=== PATIENT | male | born 1970 | race Caucasian/White ===

== ENCOUNTER 2019-02-28 19:09 | Emergency (ER) | payer MEDICAID, SELFPAY ==
[2019-02-28 19:11] VITALS: BP 121/71; PULSE 93; PULSE 97; RESP 18; TEMP 36.3; O2SAT 95; O2SAT 96; BMI 31.7
--- NOTE | 2019-02-28 19:23 | ED.VISSUMM ---
- ER Visit Summary Date of Service: 02/28/19 Chief Complaint: [#] History of Present Illness: The patient is a 49 M [resents with a rash that started 2 to 3 weeks ago. Patient states that he started using Gain detergent before the rash started. Patient states he is always switching soaps as well. He denies any exposures to poison alexa or poison oak. Patient denies any new medications. Denies any fever or recent illness. The rash is pruritic.] Physical Examination: [HEENT-PERRLA, EOMI. Cranial nerves II through XII grossly intact. TMs clear. Mucous membranes moist. No adenopathy. Cardiovascular-regular rate and rhythm without murmur or ectopy Lungs-clear to auscultation, chest wall stable without crepitus or subcu emphysema Abdomen-normoactive bowel sounds, soft, nontender, no rebound or rigidity, no peritoneal signs. Skin exam-patient has a diffuse rash involving the trunk and extremities. Does appear slightly erythematous and inflamed. There are no petechiae or vesicles noted. The lesions are polymorphous measure anywhere from 1 to 2 cm. Extremities-intact ?4, normal range of motion, normal pulses, atraumatic] Test Results: [None indicated] Emergency Department Course and Treatment: [She was started on prednisone 40 mg p.o.] Treatment Plan: [To be treated with prednisone and Atarax. Patient advised to change detergents and switch soap. Patient will be given referral to global account manager if symptoms do not resolve.] Disposition: [Discharged home in stable condition.] Impression: [Dermatitis-etiology uncertain] This note was generated with [employer] dictation software. It may contain incorrect words, spelling, and punctuation that were not noted in review of the chart prior to signing ED Disposition - Plan for ED Patient: Referrals: David Velasco MD [Primary Care Provider] -
--- NOTE | 2019-02-28 19:25 | ED.DEP ---
ED Disposition - Plan for ED Patient: Instructions: ED Dermatitis Non Specific Rash Prescriptions: hydrOXYzine tablet [Atarax tablet] 10 mg PO TID PRN PRN #30 tab PRN Reason: Itching Prednisone [Deltasone] 20 mg PO BID #14 tab Referrals: David Velasco MD [Primary Care Provider] - Parker Johnson MD [STAFF PHYSICIAN] - 1 Week
[2019-02-28] MEDS: predniSONE 20 MG Tablet 40 MG PO (19:33)
[2019-02-28 19:47] VITALS: RESP 18
== END 2019-02-28 19:48 | disposition home or self-care (01) ==
LOC: ED 19:39
PROVIDERS: Emergency Provider Emergency Medicine; Family Provider Internal Medicine; PCP Internal Medicine
DX: L30.9 Dermatitis, unspecified (principal); Z72.0 Tobacco use
CPT/HCPCS: 99283

== ENCOUNTER 2020-05-15 18:57 | Emergency (ER) | payer MEDICAID, SELFPAY ==
[2020-05-15 18:57] VITALS: BP 114/70; PULSE 83; RESP 18; TEMP 36.7; O2SAT 99; BMI 31.0
--- NOTE | 2020-05-15 19:42 | ED.VIS.GEN ---
History of Present Illness Chief Complaint: Back Narrative: Patient presents with neck pain after pushing a heavy piece of machinery in his garage yesterday. Yesterday he only had minimal pain today he woke up with significant pain. There is no radiation to his lower extremities, there is no bowel or bladder compromise there is no urinary retention symptoms, no saddle anesthesia. No fever or chills. Past Medical History - Allergies and Home Meds Allergies/Adverse Reactions: Allergies No Known Allergies Allergy (Verified 05/15/20 18:59) Primary Care Physician: Greg Osborne MD [Primary Care Provider] - Past Medical History: None Smoking Status: Current every day smoker Review of Systems General: Denies: Fever Respiratory: Denies: Dyspnea, Cough Gastrointestinal: Denies: Abdominal pain, Nausea Genitourinary: Denies: Dysuria, Hematuria Musculoskeletal: Reports: Back pain. Denies: Myalgias Skin: Denies: Rash, Abscess Neurological: Denies: Headache, Weakness Hematologic: Denies: Easy bruising Physical Exam Vital Signs/Narrative: Vital Signs Temp Pulse Resp BP Pulse Ox 05/15/20 18:57 98.0 F 83 18 114/70 99 General: - - Patient appears uncomfortable in bed ENT: Moist mucous membranes Cardiovascular: Regular rate, Regular rhythm Respiratory: No distress Abdomen: Soft, Nontender, - - No suprapubic mass or tenderness Back: - - There is tenderness over the lumbar region both spinal and paraspinal region. No obvious deformity seen. Extremities: Nontender, No edema Skin: Normal color Neurological: - - Normal strength and sensation. Normal plantar flexion and dorsiflexion of both feet and great toes. 1+ Achilles and patellar reflexes bilaterally. Negative straight leg test. Diagnostic/Tx/Re-eval - Medical Decision Making Patient has no red flags imaging is not warranted, he appears well and has a normal exam. I will discharge him with analgesia and muscle relaxants. ED Disposition - Plan for ED Patient: Disposition: Home or Assisted Living Instructions: ED LUMBAR SPRAIN/STRAIN Prescriptions: cycloBENZAPRine HCl [Flexeril] 10 mg PO TID PRN #20 tab PRN Reason: Muscle Spasm Prescription Printed Oxycodone HCl/Acetaminophen [Percocet 5/325] 1 tab PO Q6H PRN PRN 3 Days #12 tab PRN Reason: Pain Prescription Printed Referrals: Greg Osborne MD [Primary Care Provider] -
[2020-05-15] MEDS: Orphenadrine 60 MG/2 ML Ampul IM (19:50)
[2020-05-15] MEDS: HYDROmorphone 1 MG/ML Syringe IM (19:51)
[2020-05-15 19:55] VITALS: RESP 18
== END 2020-05-15 20:13 | disposition home or self-care (01) ==
PROVIDERS: Emergency Provider Emergency Medicine; PCP Internal Medicine
DX: M54.5 Low back pain (principal); F17.200 Nicotine dependence, unspecified, uncomplicated
CPT/HCPCS: 96372; 99282

== ENCOUNTER 2021-01-23 17:56 | Emergency (ER) | payer MEDICAID, SELFPAY ==
[2021-01-23 17:57] VITALS: BP 143/90; PULSE 74; RESP 15; TEMP 37.4; O2SAT 98; BMI 30.9
--- NOTE | 2021-01-23 19:17 | EKG12_ITS ---
Test Reason : ANXIETY Blood Pressure : / mmHG Vent. Rate : 070 BPM Atrial Rate : 070 BPM P-R Int : 136 ms QRS Dur : 090 ms QT Int : 392 ms P-R-T Axes : 042 009 021 degrees QTc Int : 423 ms Normal sinus rhythm Normal ECG Confirmed by MAJO QUEEN, DRAGAN ([id number]), editor magazine SAVANNA SIMS ([id number]) on 01/28/2021 12:26:00 PM Referred By: SHAYY Confirmed By:DRAGAN KASPER MD
[2021-01-23] MEDS: hydrOXYzine PAM 25 MG Capsule PO (19:22)
--- NOTE | 2021-01-23 19:35 | RAD_ITS ---
INDICATION: Dyspnea EXAMINATION/TECHNIQUE: X-RAY - XR Chest 1 View COMPARISON: 10/25/2013. FINDINGS: The lungs are clear. The cardiomediastinal silhouette is unremarkable. No pleural effusion or pneumothorax. No acute osseous abnormalities. RAD/Chest 1 View (Portable) IMPRESSION: No acute radiographic abnormalities. Electronically Signed: bEen Chung MD at 19:56 EDT Tel , Service support ,
[2021-01-23 19:40] LABS: Absolute Lymphocyte Count 3.04 X10^3/uL (0.83-4.51); Absolute Neutrophil Count 9.2 X10^3/uL (2.0-7.7); Basophil# 0.08 X10^3/uL; Basophil% 0.6 % (0-1); Eosinophil# 0.41 X10^3/uL; Eosinophils% 2.9 % (0-5); Hematocrit 42.3 % (40-54); Hemoglobin 14.1 g/dL (13.0-16.5); Lymphocyte # 3.04 X10^3/ul (0.83-4.51); Lymphocyte % 21.9 % (19-41); Mean Corp Hgb Conc 33.3 g/dL (32-36); Mean Corpuscular Hgb 30.1 pg (27.0-32.0); Mean Corpuscular Volume 90.4 fL (80-94); Mean Platelet Vol. 8.8 fl (6.2-12.0); Monocyte# 1.18 X10^3/uL; Monocyte% 8.5 % (0-10); NRBC Flagged by Analyzer 0 % (0-5); Neutrophil # 9.15 X10^3/uL (2.7-7.7); Neutrophil % 65.7 % (47-70); Platelet Count 295 K/mm3 (150-450); RBC Distribution Width CV 13.5 % (11.6-14.6); Red Blood Count 4.68 M/mm3 (4.6-6.2); White Blood Count 13.9 K/mm3 (4.4-11.0)
[2021-01-23 20:03] LABS: AST(SGOT) 8 U/L (15-37); Alanine Aminotransfer ALT/SGPT 28 U/L (16-61); Albumin, Serum 3.3 g/dL (3.2-5.0); Alkaline Phosphatase 50 U/L (45-117); Anion Gap 4 (5-15); BUN 11 mg/dL (7-18); BUN/Creat Ratio 12.8 RATIO (10-20); Calcium,Total 8.3 mg/dL (8.5-10.1); Chloride 108 mmol/L (98-107); Creatinine, Serum 0.86 mg/dL (0.70-1.30); EST Glomerular Filtration Rate 100 mL/min (>60); Est Glom Filt Rate - Afr Amer 121 mL/min (>60); Estimated Creatinine Clearance 105.05 ml/min; Globulin 3.2 g/dL (2.2-4.2); Glucose 108 mg/dL (74-106); Potassium 3.6 mmol/L (3.5-5.1); Protein, Total 6.5 g/dL (6.4-8.2); Sodium Level 139 mmol/L (136-145)
[2021-01-23] MEDS: LORazepam 1 MG Tablet PO (20:39)
--- NOTE | 2021-01-23 20:52 | EX.ED.DYSGE1 ---
HPI History of Present Illness Chief Complaint: Anxiety Informant: patient Onset/Context/Timing Onset: Days (2) Context: Gradual Onset Timing: Continuous Quality: Hopeless and anxious Location: Generalized Worsened by: Nothing Relieved by: Sleeping Narrative Narrative: Patient presents with anxiety that is been getting worse over the past 2 days. Patient states he feels hopeless. Patient also feels anxious. Patient denies any suicidal or homicidal ideations. Patient states he has a sharp pain in his left hand from prior surgery. Patient also admits to some numbness and tingling in his right hand. Patient states he is scheduled for surgery for that. Patient states this has been making him more anxious. Patient also admits to some intermittent blurred vision but denies any diplopia. Patient admits to some chest pain but denies any palpitations. Patient admits to some nausea and vomiting. [facility] Medical History GERD (gastroesophageal reflux disease) Home Medications Tamsulosin Hcl 0.4 mg PO DAILY 02/28/19 [History Last Taken Unknown] prednisone 20 mg PO BID #14 tab 02/28/19 [Rx Last Taken Unknown] cyclobenzaprine 10 mg PO TID PRN #20 tab 05/15/20 [Rx Last Taken Unknown] hydroxyzine pamoate [Vistaril] 25 mg PO TID PRN #20 cap 01/23/21 [Rx Last Taken Unknown] Allergy/AdvReac Type Severity Reaction Status Date / Time No Known Allergies Allergy Verified 01/23/21 17:56 Surgical History (Updated 01/23/21 @ 23:[address] Mk Carbone DO) History of hand surgery Social History Smoking Status: Current every day smoker ROS ROS ED Constitutional Constitutional ED: Denies chills or fever(s) Eyes Eyes: Reports blurry vision; Denies diplopia ENT ENT ED: Denies rhinorrhea or sore throat Cardiovascular Cardiovascular: Reports chest pain; Denies palpitations Respiratory/Chest Respiratory/Chest: Denies cough or dyspnea Gastrointestinal Gastrointestinal: Reports nausea and vomiting Genitourinary Genitourinary ED: Denies dysuria or hematuria Musculoskeletal Musculoskeletal: Reports back pain; Denies neck pain Integumentary Denies abscess or rash Neurologic Neurologic: Reports paresthesias RUE Psychiatric Psychiatric: Reports anxiety; Denies suicidal ideation or suicidal thoughts Allergic/Immunologic Allergic/Immunologic ED: Denies mouth swelling or urticaria EXAM Physical Exam Const Vital Signs: 01/23/21 17:57 Temperature 99.3 F H Temperature Source Temporal Pulse Rate 74 Respiratory Rate 15 Blood Pressure 143/90 H Blood Pressure Mean 107 Pulse Ox 98 Oxygen Delivery Method Room Air Positive well nourished, well developed and obese General Appearance ED: well developed Nutritional Appearance: obese HEENT normocephalic and atraumatic Eyes PERRL and EOMs intact bilaterally Neck supple and no JVD Chest Wall palpation of chest normal Resp normal respiratory effort and clear to auscultation bilaterally Effort and Inspection: Negative for respiratory distress Cardio regular rate, regular rhythm and no murmurs GI normal to inspection, nondistended, normoactive bowel sounds, soft to palpation, non-tender and non-distended Palpation: soft Extremity normal to inspection General Extremety ED: Negative for edema General Extremity: Negative for edema Neuro oriented x3 and CN's II-XII intact bilaterally Sensorium / Orientation: awake and alert Psych mental status grossly normal MDM MDM MDM Narrative Medical decision making narrative: EKG was obtained. On my interpretation, it showed a normal sinus rhythm with a rate of 70. OH interval, QRS interval, and QTc intervals were all normal. [place] was normal. There are no acute ST or T wave changes. CBC shows a mild leukocytosis of 13.9. Comprehensive metabolic profile was essentially within normal limits. Troponin was normal. Portable 1 view chest x-ray was obtained. On my interpretation, lung young are clear. There is normal cardiac silhouette. Bony thorax is normal. There is no acute process noted. Radiologist also interpreted the x-ray and agrees. Patient was given a dose of hydroxyzine here. Patient had minimal relief with this. Patient was given a dose of Ativan. Patient was resting comfortably on reevaluation. Patient was given a prescription for Vistaril. Patient was instructed to follow-up with his primary care physician in 3 to 5 days. Patient understood and was agreeable with the plan. All questions were answered. Lab Data Attestation: I reviewed the patient's lab results. Labs: Laboratory Results - last 24 hr 01/23/21 01/23/21 19:30 19:30 WBC 13.9 H RBC 4.68 Hgb 14.1 Hct 42.3 MCV 90.4 MCH 30.1 MCHC 33.3 RDW Std Deviation 45.0 H RDW Coeff of Will 13.5 Plt Count 295 MPV 8.8 Immature Gran % (Auto) 0.400 Neut % (Auto) 65.7 Lymph % (Auto) 21.9 [place]k % (Auto) 8.5 Eos % (Auto) 2.9 Baso % (Auto) 0.6 Absolute Neuts (auto) 9.2 H Absolute Lymphs (auto) 3.04 Nucleated RBC % 0 Sodium 139 Potassium 3.6 Chloride 108 H Carbon Dioxide 27.0 Anion Gap 4 L BUN 11 Creatinine 0.86 Estim Creat Clear Calc 105.05 Est GFR (MDRD) Af Amer 121 Est GFR (MDRD) Non-Af 100 BUN/Creatinine Ratio 12.8 Glucose 108 H Calcium 8.3 L Total Bilirubin 0.20 AST 8 L ALT 28 Alkaline Phosphatase 50 Troponin I < 0.015 Total Protein 6.5 Albumin 3.3 Globulin 3.2 Albumin/Globulin Ratio 1.0 Radiography Chest X-Ray - ED: 1 View, Read by ED Physician, Read by Radiologist and Normal Diagnostic Testing: Radiology Impression Chest X-Ray 01/23/21 19:35 IMPRESSION: No acute radiographic abnormalities. Electronically Signed: Eben Chung MD at 19:56 EDT Tel , Service support , EKG Initial EKG: Attestation: I personally reviewed and interpreted this EKG as follows: Interpretation: Sinus Rhythm (70) and No Acute Injury Pattern Discharge Plan Triage Chief Complaint: Anxiety ED Provider: Mk Carbone Dx/Rx/DC Orders Clinical Impression: Acute anxiety Instructions: ED Anxiety Reaction Prescriptions: New hydroxyzine pamoate [Vistaril] 25 mg capsule 25 mg PO TID PRN (Reason: anxiety) Qty: 20 RF: 0 Discontinued hydroxyzine HCl 10 MG tablet 10 mg PO TID PRN PRN (Reason: Itching) Qty: 30 RF: 0 No Action Tamsulosin Hcl 0.4 MG capsule 0.4 mg PO DAILY RF: 0 prednisone 20 MG tablet 20 mg PO BID Qty: 14 RF: 0 cyclobenzaprine 10 MG tablet 10 mg PO TID PRN (Reason: Muscle Spasm) Qty: 20 RF: 0 Primary Care Provider: Greg Osborne Referrals: Greg Osborne MD [Primary Care Provider] - 3-5 Days Disposition Disposition: Home, self care Discharge Date/Time: 01/23/21 21:09
== END 2021-01-23 21:09 | disposition home or self-care (01) ==
PROVIDERS: Emergency Provider Emergency Medicine; PCP Internal Medicine
DX: F41.9 Anxiety disorder, unspecified (principal); K21.9 Gastro-esophageal reflux disease without esophagitis; F17.200 Nicotine dependence, unspecified, uncomplicated; E66.9 Obesity, unspecified
CPT/HCPCS: 71045; 80053; 84484; 85025; 93005; 99284; A4216

== ENCOUNTER 2021-03-26 09:00 | Outpatient (RCR) | payer MEDICAID, SELFPAY ==
--- NOTE | 2021-03-26 09:05 | BH.SGPN.GN ---
Behaviors/Verbalizations/Mental Status: [] Pt eye contact good, casually dressed, motor activity appropriate, speech normal rate and tone, mood euthymic, congruent affect, thoughts linear and intact, no evidence of delusions or hallucinations. Client Response/Progress/Benefit: []Pt engaged participant AEB pt listening attentively to peers and openly sharing what brought him to IOP. Pt stated he is seeking treatment for significant anxiety, PTSD and confusion. Pt reported he would like to learn how to better manage his anxiety and mental health. Pt's first day in IOP. Seemed to benefit from support from peers. Pt to continue IOP to increase healthy coping, improve daily functioning and prevent decompensation. Narrative Note: []
--- NOTE | 2021-03-26 10:15 | BH.SGPN.GN ---
Behaviors/Verbalizations/Mental Status: [] Eye contact is good. Motor activity is appropriate. Appearance is casual. Speech is Appropriate. Mood is anxious. Affect is congruent. Thoughts are linear and logical. No evidence of psychosis. Client Response/Progress/Benefit: [] Pt was an active participant in group discussion and activity. Attentive during psychoeducation. Engaged and provided feedback during activity where group had to identify 10 positives and 10 negatives of a picture. Provided her thoughts on how one's perspective is formed and with the group identified several ways such as; upbringing, trauma, environment, friends, past events, fear, medical issues, physical pain, and mental health disorders. Along with her peers identified how one's perspective can negatively impact mental health treatment leading to; risky behaviors, suicidal thoughts, self-harming, isolation, avoiding treatment, shutting down, and can also cause one to stop taking medications. Provided input into how a positive or realistic perspective can help decrease depression, improve relationship, increase hope, and increase motivation. Increased awareness and discussion on the role that perspective has on mental health was beneficial. Will continue in IOP to prevent decompensation, improve functioning, and increase healthy coping skills. Narrative Note: []
--- NOTE | 2021-03-26 11:15 | BH.SGPN.GN ---
Behaviors/Verbalizations/Mental Status: []Client alert and oriented, neatly dressed and groomed. Eye contact good. Motor activity appropriate. Speech within normal limits. Affect congruent, mood euthymic. Thoughts linear, logical, no signs of hallucinations or delusions. Client Response/Progress/Benefit: []Pt engaged participant AEB pt providing input throughout session, listening attentively to peers and completing strengths exploration handout. Pt identified personal strengths such as persistence, forgiveness, and optimism. Pt stated these strengths will help pt?s mental health recovery by ?I won?t give up,? taking responsibility for his own actions, and having hope for the future. Pt seemed to benefit from increased awareness of personal strengths and improved understanding how perspective can impact view of self. Pt also attentive during group brainstorming on strategies to help pt?s recognize and use their strengths. Pt is to continue IOP tx improve daily functioning, increase emotional regulation skills, and gain healthy support. Narrative Note: []
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
--- NOTE | 2021-03-27 13:37 | BH.DR.ITP ---
Initial Treatment Plan Patient Information Visit Information: ADMISSION DATE: EXPECTED LOS: 4-6 weeks Problems/Symptoms Problem #1:: Depression and erratic moods Symptom:: Sadness, worthlessness, guilt, irritability, low motivation, anhedonia, erratic sleep, low energy, decreased concentration, passive suicidal ideation, passive thoughts of Problem #2:: Anxiety Symptom:: Worry, rumination, panic attacks, nightmares, hypervigilance
--- NOTE | 2021-04-01 10:15 | BH.SGPN.GN ---
Behaviors/Verbalizations/Mental Status: []Eye contact is good. Motor activity is restless. Appearance is casual. Speech is Appropriate. Mood is agitated and anxious. Affect is full. Thoughts are linear and logical. No evidence of psychosis. Client Response/Progress/Benefit: []Pt was an active participant in group discussion and activity. Attentive during psychoeducation on factors that build resiliency. Worked with peers to define resilience and shared ?stubbornness can be resiliency, but it can sometimes be a bad thing.? Along with peers also identified what could impact resilience which included: family, internal coping skills, beliefs, hope, and personality type. Pt reports his desire to succeed and willingness to return to treatment make pt resilient. Pt benefited by increasing awareness on the role of resilience in mental health and factors that can help build resiliency. Will continue in IOP to prevent decompensation, learn healthy coping skills, and reduce intensity of anxiety symptoms. Narrative Note: []
--- NOTE | 2021-04-01 10:31 | BH.MDN_ITS ---
Multi-Disciplinary Note - Note 30-min Individual Time Started:: 09:45 Date: 04/01/21 Purpose of session/treatment goals addressed:: The purpose of this session was to gather information on client's current stressors, symptoms, and treatment goals. Another goal was to build rapport and provide psychoeducation. Eye Contact:: Good Motor Activity:: Restless Appearance:: Casual Speech:: Rambling, Rapid Mood:: Anxious Affect:: Congruent Thoughts:: Racing, No evidence of hallucinations/delusions noted Staff Interventions:: Therapist used active listening and open-ended questions to explore client's current stressors, symptoms, and treatment goals. Therapist used strengths perspective to build rapport and provide emotional support. Therapist provided psychoeducation on medication, anxiety and bipolar disorder, and the benefits of sobriety. Client Response:: Client responded well to session, open to meeting with therapist. Client shared he had to step out from process group today due significant anxiety. Client stated he felt sweaty, had shortness of breath, and was restless. Client reports he is not sure what triggered his increased anxiety but suspects it could be caffeine this morning. Client is also worried about the medication change to Abilify. Discussed medication concerns and receptive to psychoeducation. Also discussed recent binging and purgring and client reports concern about his increased appetite. Discussed history of bulimia and substance use. Client reports his eating disorder and anxiety stem back to childhood. Client shared he wants to work on reducing anxiety, gaining self-confidence, and gaining self-awareness while in [facility]. Client was recently diagnosed with bipolar disorder NOS and he reports he does not know that much about the diagnosis. Client receptive to learning more about his symptoms and habits/coping skills that may be impacting his symptoms. Client stated he also wants to remain sober and find better ways to cope rather than continuing to escape. Risks/Concerns:: Client denies any active suicidal ideations, plan, or intent as of 04/01/21. Client reports feeling worried about if his anxiety does not go away he will because I can't live like this. Future oriented and motivated. Progress Toward Goals/Plan:: Client started IOP on 03/26/21 and appears to be connecting well to group so far. Client presents to [facility] with severe anxiety, panic attacks, and inability to function due to his symptoms. Client endorses increased appetite, agitation, restlessness, rapid speech, and racing thoughts. Client recently switched medications and he is concerned that the medication switch is making his symptoms worse. IOP staff will talk to Dr. Sesay. Will continue IOP tx to prevent decompensation, improve emotional regulation skills, and reduce negative thinking patterns. Time Stopped:: 10:10
--- NOTE | 2021-04-01 11:20 | BH.SGPN.GN ---
Behaviors/Verbalizations/Mental Status: []Client alert and oriented, casually dressed and neatly groomed. Eye contact good. Motor activity appropriate. Speech within normal limits. Affect congruent, mood euthymic and anxious. Thoughts linear, logical, no signs of hallucinations or delusions. Client Response/Progress/Benefit: []Client responded well to session, engaged and providing input throughout. Client participated in the discussion of how each resiliency component can help increase personal resiliency. Reports relating to the personal examples shared by fellow participants and provided insight of his own. Client worked with group to identify ways to practice each of the resiliency traits reviewed. Client shared he would like to focus on improving resilience trait of ?take care of self?. Client would like to continue working on this resiliency trait by scheduling time each Thursday to complete meal prep for the week as well as establish a weekly exercise plan. Appeared to benefit from reflecting on importance of each resilience trait and identifying strategies to strengthen resilience. Will continue IOP tx to continue to improve mood stability, further reduce anxiety, and improve daily functioning. Narrative Note: []
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
--- NOTE | 2021-04-01 14:25 | BH.MTP ---
Master Treatment Plan - Patient Information Program Physician:: Dr. Kristen Sesay Primary Therapist:: FELA Truong - Psychiatric Diagnoses Psychiatric Diagnoses:: Bipolar, NOS; Generalized anxiety disorder; PTSD; Bulimia nervosa; Alcohol use disorder; Polysubstance use disorder history; Cluster B traits Diagnosis Code(s):: F 31.9 - Estimated LOS Estimated LOS (in weeks):: 6 Problem/Goal #1 - Problem/Goal #1 Stated Goal:: Client will increase mood stability, reduce depressive symptoms, and reduce passive thoughts of . Description of Barriers: Client has history of body image issues and bulimia and fears being overweight. Client states that he is anxious and depressed over sexual identity issues and says that he has hated himself always because he thinks he is shine and that it is not right to be shine. Client is currently not working and is on probation. History of non-responsiveness to medications and medication non-compliance. Client also struggles with large groups as this makes client feel highly anxious. Current caffeine use may be problematic in treating client's bipolar symptoms. History of impulsive behaviors and limited supports. Functional Impact: Client is a 51-year-old male with a history of Bipolar NOS, PTSD, polysubstance use, and bulimia. Client was referred to [facility] by his roommate due to worsening anxiety and panic. At intake, client reported daily anxiety with racing thoughts, restlessness, feeling on edge, and panic attacks. Client shared being unable to function and found himself avoiding and isolating. Client reports increased irritability with anger outbursts. Client denies any HI, but he does have a history of violent behaviors. Client currently on probation and reports he has PTSD from detention. Client shared he has nightmares and hypervigilance. Client also has a history of substance abuse, but reports he has been sober for 6 months. Client reports he self-medicates with substances to escape. Client denies any active SI, but does endorses wishes of and has history of one previous suicide attempt. Client shared a history of impulsivity and some evidence of will. Client's symptoms are currently impacting his ability to function. Goal Relevant Strengths/Supports: For primary support client has his roommate and his first aid officer. - Objectives Objective #1 Stated Objective: Client will learn and utilize 2-3 healthy coping strategies to better manage depressive and mood symptoms as shown by reduced DSM-5 scores. Interventions: Therapist will teach client various coping skills to manage symptoms and give client tangible resources to use to regulate emotions. Therapist will use cognitive restructuring techniques and help client gain awareness of negative thoughts that reinforce depressive cycles. Therapist will help client incorporate behavioral activation and assist client in setting SMART goals. Discharge Criteria: Client will have met this goal when can report learning and using at least 2 coping skills to manage depressive symptoms and show a reduction in DSM-5 symptoms. Target Date: 05/07/21 Review Date: 04/23/21 Status: open Objective #2 Stated Objective: Will increase awareness of warning signs, triggers, and coping skills to manage bipolar symptoms. Interventions: Through group and individual therapy client will gain insight on warning signs and triggers for will, depression, and irritability. Therapist will help client explore how his diet, exercise, and sleep schedule impact bipolar symptoms and help client set self-care goals to promote mood stability. Discharge Criteria: When client can identify at least 2-3 personal warning signs, triggers, and coping skills to manage his bipolar disorder. Target Date: 05/07/21 Review Date: 04/23/21 Status: open Problem/Goal #2 - Problem/Goal #2 Stated Goal:: Client will reduce anxiety and panic symptoms while increasing ability to function on daily basis. Description of Barriers: Client has history of body image issues and bulimia and fears being overweight. Client states that he is anxious and depressed over sexual identity issues and says that he has hated himself always because he thinks he is shine and that it is not right to be shine. Client is currently not working and is on probation. History of non-responsiveness to medications and medication non-compliance. Client also struggles with large groups as this makes client feel highly anxious. Current caffeine use may be problematic in treating client's bipolar symptoms. History of impulsive behaviors and limited supports. Functional Impact: Client is a 51-year-old male with a history of Bipolar NOS, PTSD, polysubstance use, and bulimia. Client was referred to [facility] by his roommate due to worsening anxiety and panic. At intake, client reported daily anxiety with racing thoughts, restlessness, feeling on edge, and panic attacks. Client shared being unable to function and found himself avoiding and isolating. Client reports increased irritability with anger outbursts. Client denies any HI, but he does have a history of violent behaviors. Client currently on probation and reports he has PTSD from detention. Client shared he has nightmares and hypervigilance. Client also has a history of substance abuse, but reports he has been sober for 6 months. Client reports he self-medicates with substances to escape. Client denies any active SI, but does endorses wishes of and has history of one previous suicide attempt. Client shared a history of impulsivity and some evidence of will. Client's symptoms are currently impacting his ability to function. Goal Relevant Strengths/Supports: For primary support client has his roommate and his first aid officer. - Objectives Objective #1 Stated Objective: Client will identify 2-3 anxiety/panic triggers and 2 coping skills to use when feeling anxious to manage anxiety as shown by decreasing her DSM-5 scores for anxiety. Interventions: Therapist will provide education on anxiety, avoidance behaviors, and maintenance cycles. Therapist will help client explore personal symptoms and warning signs of anxiety. Therapist will teach client coping skills to improve emotional regulation, mindfulness, and distress tolerance to help client cope with anxiety in the moment. Discharge Criteria: Client will have accomplished this goal when client can identify at least 2 triggers and report using 2 coping skills to manage anxiety. Additionally, client will have accomplished this goal when DSM-5 scores show a reduction for anxiety. Target Date: 05/07/21 Review Date: 04/23/21 Status: open Objective #2 Stated Objective: Client will identify 2-3 cognitive distortions that lead to rumination and learn 2-3 ways to manage these thoughts to better manage anxiety Interventions: Therapist will provide education on the most common cognitive distortions and teach client the connection between thoughts, emotions, and feelings. Therapist will assist client in identifying, challenging, and replacing dysfunctional thoughts with positive, more realistic thoughts. Therapist will use CBT and DBT techniques to help client gain awareness of thinking errors and learn how to more effectively handle negative thoughts Discharge Criteria: Client will have accomplished this goal when can identify at least 2 cognitive distortions and at least 2 coping skills to manage negative thoughts. Target Date: 05/07/21 Review Date: 04/23/21 Status: open
--- NOTE | 2021-04-03 08:44 | BH.COMM_ITS ---
Communication Note - Communication with Client Communication Note: Client called into IOP stating he would not be able to come in today. Client was scheduled to see Dr. Lim today. Client states he has stopped taking his new medication ordered for him last week, Abilify, due to increased anxiety with taking. Discussed client with Dr. Lim and Dr. Lim orders for client to stop Abilify and start taking the Effexor 37.5mg daily he had been taking prior to Abilify. This nurse called client and discussed same a nd client states he had already started taking his Effexor 37.5mg daily again. Discussed with client he would be able to see Dr. Lim next Thursday.
--- NOTE | 2021-04-04 10:11 | BH.COMM ---
Communication Note - Communication with Client Communication Note: Client cancelled two of his IOP sessions this week. Reports plan to attend IOP on 04/09/21.
--- NOTE | 2021-04-11 09:01 | BH.DS_ITS ---
Discharge Summary - Demographics Date of Admission:: 03/26/21 Discharge Date: 04/11/21 Presenting Problems at Admission:: Client is a 51-year-old male with a history of Bipolar NOS, PTSD, polysubstance use, and bulimia. Client was referred to [facility] by his roommate due to worsening anxiety and panic. At intake, client reported daily anxiety with racing thoughts, restlessness, feeling on edge, and panic attacks. Client shared being unable to function and found himself avoiding and isolating. Client reports increased irritability with anger outbursts. Client denies any HI, but he does have a history of violent behaviors. Client currently on probation and reports he has PTSD from halfway. Client shared he has nightmares and hypervigilance. Client also has a history of substance abuse, but reports he has been sober for 6 months. Client reports he self-medicates with substances to escape. Client denied any active SI, but does endorses wishes of and has history of one previous suicide attempt. Client shared a history of impulsivity and some evidence of will. Client sought treatment as his symptoms were impacting his ability to function. Discharge Diagnoses:: Bipolar, NOS F 31.9; Generalized anxiety disorder; PTSD; Bulimia nervosa; Alcohol use disorder; Polysubstance use disorder history; Cluster B traits Reason for Discharge:: Client voluntarily discharged from [facility] tx due to difficulty adhering to the attendance policy and plan to seek more AoD specific counseling. - Treatment Progress During Treatment & Response: Limited progress due to client's lack of attendance which impacted client's ability to participate in group and individual sessions. Client cancelled multiple times during his time in [facility], but on days he did attend client was an active participant. Client was engaged in individual therapy sessions, but he only met with therapist once. Due to limited attendance, client did not complete the program or accomplish his treatment goals. Issues Still to be Addressed:: Negative core beliefs and thinking patterns, substance use, anxiety and panic, self-care, emotional regulation, and impulse control. Discharge Recommendations/Instructions:: Client reports plan to follow up with [facility] for outpatient counseling. Client previously saw a counselor at [facility] and feels it will be a good fit to help client with his mental health and substance use history. Client will follow up with his PCP for medication management. Discharge Handout: Complete Discharge Handout with client on aftercare options and continuity of care.
== END 2021-04-11 07:42 | disposition home or self-care (01) ==
LOC: BHIOP 09:00
PROVIDERS: PCP Internal Medicine; Referring Provider Psychiatry & Neurology Psychiatry; Visit Provider Psychiatry & Neurology Psychiatry
DX: F31.9 Bipolar disorder, unspecified (principal); F43.10 Post-traumatic stress disorder, unspecified; F50.2 Bulimia nervosa; Z72.0 Tobacco use; Z79.899 Other long term (current) drug therapy; Z91.5 Personal history of self-harm; N40.0 Benign prostatic hyperplasia without lower urinary tract symptoms; Z81.8 Family history of other mental and behavioral disorders
CPT/HCPCS: 90792; H2012; H2020; S9480; 90832

== ENCOUNTER 2021-11-22 11:37 | Emergency (ER) | payer MEDICAID, SELFPAY ==
[2021-11-22 11:37] VITALS: PULSE 70; RESP 12; TEMP 37.1; O2SAT 95; BMI 32.3
[2021-11-22 12:00] VITALS: O2SAT 98
--- NOTE | 2021-11-22 12:04 | CT_ITS ---
STUDY: CT CHEST, ABDOMEN T PELVIS WITH CONTRAST REASON FOR EXAM: Male, 51 years old. right rib pain, fall -- TRAUMA ONLY: IV Contrast. Dont wait for creatinine RADIATION DOSAGE (If Supplied By Facility): CTDIvol = ( 16.49 ) mGy, DLP = ( 2224.36 ) mGycm TECHNIQUE: Transaxial imaging was performed following intravenous administration of IV 100mL Isovue-370. Individualized dose optimization techniques were used for this CT. COMPARISON: No relevant priors. FINDINGS: CHEST The lungs are normal. There is no demonstrated pleural abnormality. Normal heart and pericardium. Small hiatal hernia. Normal mediastinum. Normal hilar regions. Normal unenhanced pulmonary arteries. Normal aorta arch and descending thoracic aorta. Normal osseous structures. There is no demonstrated abnormality of the visualized upper abdomen. ABDOMEN The visualized lung bases are unremarkable. The visualized portions of the heart are within normal limits. Normal liver. The gallbladder is contracted. Normal spleen. Normal pancreas. Normal bilateral adrenal glands. Normal right kidney. Normal left kidney. There is a small hiatal hernia. Normal small intestine. There is diverticulosis, with thickening of the colon wall, and pericolonic inflammation changes consistent with acute diverticulitis. The appendix is visualized and appears normal. Normal abdominal aorta. Normal inferior vena cava. Normal retroperitoneum. Normal abdominal wall. Normal osseous structures. PELVIS Normal urinary bladder. Normal visualized small intestine. Normal visualized colon. There is no pelvic fluid. There is no pelvic lymphadenopathy or mass lesion. Normal visualized pelvic arteries. Normal abdominal wall. Normal osseous structures. CT/CT Chest, Abd, Pel w/Contrast IMPRESSION: 1. No acute abnormality. 2. Small hiatal hernia. 3. Sigmoid diverticulosis without diverticulitis per Electronically Signed: Ward Huerta MD at 14:23 EST ,
--- NOTE | 2021-11-22 12:05 | RAD_ITS ---
STUDY: X-RAY - LEFT KNEE REASON FOR EXAM: Male, 51 years old. fall, knee pain TECHNIQUE: 4 view(s) of the knee. COMPARISON: 05/09/2015 FINDINGS: Normal visualized distal femur. Normal visualized proximal tibia and fibula. Normal proximal tibiofibular articulation. Normal medial femorotibial compartment. Normal lateral femorotibial compartment. Normal patellofemoral articulation. The soft tissue structures are unremarkable. RAD/Knee 4 or More Views IMPRESSION: Normal x-ray examination of the knee. Electronically Signed: Ward Huerta MD at 13:28 EST ,
--- NOTE | 2021-11-22 12:05 | RAD_ITS ---
STUDY: X-RAY - LEFT WRIST REASON FOR EXAM: Male, 51 years old. fall, wrist pain TECHNIQUE: 3 view(s) of the wrist were obtained. COMPARISON: None. FINDINGS: Normal visualized distal radius and ulna. Normal radiocarpal articulation. Normal distal radioulnar articulation. Absence of the trapezium. Normal carpal articulations. Normal carpometacarpal articulation of the thumb. Normal second through fifth carpometacarpal articulations. Normal visualized metacarpal bones. The soft tissue structures are unremarkable. RAD/Wrist min 3 Views IMPRESSION: No acute fracture or dislocation. Electronically Signed: Ward Huerta MD at 13:28 EST ,
--- NOTE | 2021-11-22 12:05 | RAD_ITS ---
STUDY: X-RAY - LEFT RADIUS AND ULNA REASON FOR EXAM: Male, 51 years old. fall TECHNIQUE: 2 view(s) of the forearm. COMPARISON: None. FINDINGS: There is no demonstrated soft tissue swelling. Acute fracture of the radial neck. Normal visualized ulna. RAD/Forearm 2 Views IMPRESSION: Acute radial neck fracture. Electronically Signed: Ward Huerta MD at 13:29 EST ,
--- NOTE | 2021-11-22 12:05 | RAD_ITS ---
STUDY: X-RAY - LEFT HAND REASON FOR EXAM: Male, 51 years old. thumb pain TECHNIQUE: 3 view(s) of the hand. COMPARISON: None. FINDINGS: Normal radiocarpal articulation. Normal distal radioulnar joint. Normal visualized carpal bones. Normal carpal articulations Normal carpometacarpal articulation of the thumb. Normal second through fifth carpometacarpal joints. Normal metacarpi. Normal metacarpophalangeal joint of the thumb. Normal interphalangeal joint of the thumb. Acute comminuted impacted fracture of the base of the first proximal phalanx. Normal metacarpophalangeal joints of the second through fifth fingers. Normal proximal and distal interphalangeal joints of the second through fifth fingers. Normal phalanges of the second through fifth fingers. The soft tissue structures are unremarkable. RAD/Hand Min 3 Views IMPRESSION: Acute comminuted impacted fracture base of the first proximal phalanx. Electronically Signed: Ward Huerta MD at 13:27 EST ,
--- NOTE | 2021-11-22 12:07 | ED.VIS.FALL ---
HPI <MANUEL Antonio - Last Filed: 11/22/21 15:43> HPI - Fall History of Present Illness Chief Complaint: Fall Narrative Narrative: 51-year-old male with history of alcohol use, BPH, GERD, hyperlipidemia, bipolar presents to the emergency department after falling off a ladder. Patient states that he was up around 7 feet, falling forward landing on his left knee, left hand and wrist and hitting his right ribs. Patient denies any head or neck injury. Patient was able to get up after the fall and tell his father who brought him into the emergency department. Patient remembers the entire event, patient is currently not any blood thinners, denies any LOC. Patient states that the worst pain is his left hand worse on his thumb. Patient does have an abrasion to his left knee, patient denies any drugs or alcohol use today. PFSH <MANUEL Antonio - Last Filed: 11/22/21 15:43> [facility] Medical History (Updated 11/22/21 @ 15:38 by MANUEL Antonio) Alcohol use disorder Bipolar disorder, unspecified Bulimia nervosa Generalized anxiety disorder GERD (gastroesophageal reflux disease) PTSD (post-traumatic stress disorder) Home Medications Tamsulosin Hcl 0.4 mg PO DAILY 02/28/19 [History Last Taken Unknown] omeprazole 20 mg PO DAILY 11/22/21 [History Last Taken Unknown] oxycodone-acetaminophen [Percocet] 1 tab PO Q6H PRN 3 Days #10 tab 11/22/21 [Rx Last Taken Unknown] Allergy/AdvReac Type Severity Reaction Status Date / Time No Known Allergies Allergy Verified 11/22/21 11:48 Surgical History History of hand surgery Social History Smoking Status: Current every day smoker tobacco type: cigarettes ROS <MANUEL Antonio - Last Filed: 11/22/21 15:43> ROS ED ROS Narrative Constitutional: Negative for fever, chills, weight loss or gain, weakness Eyes: Negative for vision loss, vision change, double vision ENT: Negative for any hearing changes, ringing in the ears, dizziness, discharge, pain Nose: Negative for any congestion, runny nose, sinus pain, allergies Throat: Negative for any sore throat hoarseness, voice changes, Cardiovascular: Negative for any chest pain, tightness, palpitations, racing heartbeat. Positive for right-sided chest pain Respiratory: Negative for any coughs, sputum production, coughing, hemoptysis, shortness of breath, shortness of breath on exertion, Gastrointestinal: Negative for any abdominal pain, nausea, vomiting, diarrhea, constipation, blood in stool, blood in vomit : Negative for any urinary frequency, incontinence, dysuria, retention, blood in urine Muscle skeletal: Negative for any muscle joint pain, stiffness, myalgias, arthralgias, neck pain, back pain. Positive for left-sided hand pain, forearm, denies any elbow pain. Neurological: Negative for any headache, head injury, dizziness, syncope, numbness or tingling Skin: Negative for any rashes, lumps, itching, abrasions, lacerations Psychiatric: Negative for any depression, anxiety, stress, suicidal ideation, homicidal ideation Hematologic: Negative for any easy bruising, excessive bruising, easy bleeding Allergies: Negative for any eczema, hives, rash EXAM <MANUEL Antonio - Last Filed: 11/22/21 15:43> Physical Exam Const Vital Signs: 11/22/21 11:37 11/22/21 12:00 11/22/21 13:28 Temperature 98.7 F Temperature Source Oral Pulse Rate 70 89 Respiratory Rate 12 18 Respiratory Effort Normal Non-Labored Respiratory Depth Normal Respiratory Pattern Normal Blood Pressure 130/83 H Blood Pressure Mean 98 Pulse Ox 95 98 95 Oxygen Delivery Method Room Air Room Air Room Air 11/22/21 15:13 11/22/21 16:06 Temperature Temperature Source Pulse Rate 102 H 99 Respiratory Rate 26 H 17 Respiratory Effort Respiratory Depth Respiratory Pattern Blood Pressure 116/75 Blood Pressure Mean 88 Pulse Ox Oxygen Delivery Method Room Air Positive well nourished and well developed General Appearance ED: well developed HEENT Reports normocephalic HEENT Narrative: Pupils equal round reactive to light. atraumatic Eyes PERRL Neck full ROM Chest Wall Chest Narrative: Patient does have some pain on palpation to the right anterior chest, negative for any crepitus, patient's lung sounds are clear. Patient has pain on palpation Resp normal respiratory effort Cardio regular rate, regular rhythm, S1 normal heart sound, S2 normal heart sound and no murmurs GI non-tender, non-distended and no masses Auscultation: normoactive bowel sounds Palpation: soft Back/Spine no CVA tenderness Extremity Extremity Narrative: Patient has pain to the left thumb, patient has any pain with any movement, +2 radial pulse. I was able to flex at the elbow, this did cause discomfort however in the hand not in the elbow. Patient also complains of forearm pain. Negative for any ecchymosis, edema. General Extremety ED: Yes normal exam except as noted General Extremity: normal exam except as noted Neuro oriented x3, CN's II-XII intact bilaterally and moves all extremities Sensorium / Orientation: alert, oriented to person, oriented to place and oriented to time <Dr. Patrick Davila DO - Last Filed: 11/22/21 23:12> Physical Exam Const Vital Signs: 11/22/21 11:37 11/22/21 12:00 11/22/21 13:28 Temperature 98.7 F Temperature Source Oral Pulse Rate 70 89 Respiratory Rate 12 18 Respiratory Effort Normal Non-Labored Respiratory Depth Normal Respiratory Pattern Normal Blood Pressure 130/83 H Blood Pressure Mean 98 Pulse Ox 95 98 95 Oxygen Delivery Method Room Air Room Air Room Air 11/22/21 15:13 11/22/21 16:06 Temperature Temperature Source Pulse Rate 102 H 99 Respiratory Rate 26 H 17 Respiratory Effort Respiratory Depth Respiratory Pattern Blood Pressure 116/75 Blood Pressure Mean 88 Pulse Ox Oxygen Delivery Method Room Air [facility] <MANUEL Antonio - Last Filed: 11/22/21 15:43> [facility] Narrative Medical decision making narrative: Patient arrives anxious, patient presents in moderate pain to the left arm, right ribs. Patient did fall from a ladder, patient did receive a trauma CT of the chest abdomen pelvis. This was unremarkable for any acute process. Patient was given IV fluids, IV Zofran, fentanyl 50 mcg x2. This did improve the patient's pain. Patient did receive x-rays of the left knee which were unremarkable patient's x-ray of the right hand shows an acute comminuted impacted fracture base of the first proximal phalanx, patient's forearm x-ray shows an acute radial neck fracture. The patient was placed in a thumb spica and given a sling. Patient instructed to keep the arm in a sling, thumb spica intact until seen by orthopedics. Patient be given Percocet for pain. Patient verbally understands the importance of follow-up. Patient stable for discharge. Patient remains neurologically intact. Lab Data Labs: Laboratory Results - last 24 hr 11/22/21 11/22/21 11/22/21 11:40 11:40 14:30 WBC 11.4 H RBC 4.63 Hgb 14.4 Hct 41.9 MCV 90.5 MCH 31.1 MCHC 34.4 RDW Std Deviation 44.2 H RDW Coeff of Will 13.3 Plt Count 330 MPV 9.2 Immature Gran % (Auto) 0.500 Neut % (Auto) 53.2 Lymph % (Auto) 31.1 [place] % (Auto) 10.6 H Eos % (Auto) 3.6 Baso % (Auto) 1.0 Absolute Neuts (auto) 6.1 Absolute Lymphs (auto) 3.55 Nucleated RBC % 0 Sodium 136 Potassium 4.4 Chloride 103 Carbon Dioxide 27.0 Anion Gap 6 BUN 28 H Creatinine 1.10 Estim Creat Clear Calc 81.23 Est GFR (MDRD) Af Amer 91 Est GFR (MDRD) Non-Af 75 BUN/Creatinine Ratio 25.5 H Glucose 159 H Calcium 9.0 Urine Color Yellow Urine Clarity Clear Urine pH 6.5 Ur Specific [place] 1.015 Urine Protein 15 H Urine Glucose (UA) Normal Urine Ketones 5 H Urine Occult Blood Negative Urine Nitrite Negative Urine Bilirubin Negative Urine Urobilinogen Normal Ur Leukocyte Esterase Negative Urine RBC 0 SEEN Urine WBC 0-5 SEEN Ur Squamous Epith Cells 0-5 SEEN Amorphous Sediment 1+ Urine Bacteria 0 SEEN Urine Mucus 0 SEEN Radiography Diagnostic Testing: Clinical Impression(s) from Imaging Studies Chest/Abdomen/Pelvis CT 11/22/21 12:04 IMPRESSION: 1. No acute abnormality. 2. Small hiatal hernia. 3. Sigmoid diverticulosis without diverticulitis per Electronically Signed: Ward Huerta MD at 14:23 EST , Forearm X-Ray 11/22/21 12:05 IMPRESSION: Acute radial neck fracture. Electronically Signed: Ward Hureta MD at 13:29 EST , Hand X-Ray 11/22/21 12:05 IMPRESSION: Acute comminuted impacted fracture base of the first proximal phalanx. Electronically Signed: Ward Huerta MD at 13:27 EST Reading Location ID and State: [id number] / [employer] , Service support , Knee X-Ray 11/22/21 12:05 IMPRESSION: Normal x-ray examination of the knee. Electronically Signed: Ward Huerta MD at 13:28 EST Reading Location ID and State: [id number] / [employer] , Service support , Wrist X-Ray 11/22/21 12:05 IMPRESSION: No acute fracture or dislocation. Electronically Signed: Ward Huerta MD at 13:28 EST Reading Location ID and State: [id number] / [employer] , Service support , <Dr. Patrick Davila, DO - Last Filed: 11/22/21 23:12> [facility] MDM Narrative Medical decision making narrative: Attending note: Patient seen and evaluated general internist and physician leader. I agree with plan work-up. I performed on [id number] evaluation. Presents private vehicle fall down a ladder a police 7 steps to skidded down falling onto the ground. Pain in the right lower ribs along with left hand. No head injuries. No anticoagulation medicines. Exam with tenderness palpation right lower anterior ribs no crepitus. Symmetric breath sounds. There is tenderness at the base of the left thumb. Tenderness at the elbow. No deformities. Skin was intact. Trauma scans chest abdomen pelvis due to location of injury and mechanism. No fractures or intrathoracic or intra-abdominal process. X-rays reviewed by myself and read by radiology notes left radial neck fracture along with a comminuted left thumb fracture. Thumb spica placed by general internist and physician leader sling with orthopedic follow-up. Lab Data Attestation: I reviewed the patient's lab results. Labs: Laboratory Results - last 24 hr 11/22/21 11/22/21 11/22/21 11:40 11:40 14:30 WBC 11.4 H RBC 4.63 Hgb 14.4 Hct 41.9 MCV 90.5 MCH 31.1 MCHC 34.4 RDW Std Deviation 44.2 H RDW Coeff of Will 13.3 Plt Count 330 MPV 9.2 Immature Gran % (Auto) 0.500 Neut % (Auto) 53.2 Lymph % (Auto) 31.1 [place] % (Auto) 10.6 H Eos % (Auto) 3.6 Baso % (Auto) 1.0 Absolute Neuts (auto) 6.1 Absolute Lymphs (auto) 3.55 Nucleated RBC % 0 Sodium 136 Potassium 4.4 Chloride 103 Carbon Dioxide 27.0 Anion Gap 6 BUN 28 H Creatinine 1.10 Estim Creat Clear Calc 81.23 Est GFR (MDRD) Af Amer 91 Est GFR (MDRD) Non-Af 75 BUN/Creatinine Ratio 25.5 H Glucose 159 H Calcium 9.0 Urine Color Yellow Urine Clarity Clear Urine pH 6.5 Ur Specific [place] 1.015 Urine Protein 15 H Urine Glucose (UA) Normal Urine Ketones 5 H Urine Occult Blood Negative Urine Nitrite Negative Urine Bilirubin Negative Urine Urobilinogen Normal Ur Leukocyte Esterase Negative Urine RBC 0 SEEN Urine WBC 0-5 SEEN Ur Squamous Epith Cells 0-5 SEEN Amorphous Sediment 1+ Urine Bacteria 0 SEEN Urine Mucus 0 SEEN Radiography Diagnostic Testing: Clinical Impression(s) from Imaging Studies Chest/Abdomen/Pelvis CT 11/22/21 12:04 IMPRESSION: 1. No acute abnormality. 2. Small hiatal hernia. 3. Sigmoid diverticulosis without diverticulitis per Electronically Signed: Ward Huerta MD at 14:23 EST , Forearm X-Ray 11/22/21 12:05 IMPRESSION: Acute radial neck fracture. Electronically Signed: Ward Huerta MD at 13:29 EST , Hand X-Ray 11/22/21 12:05 IMPRESSION: Acute comminuted impacted fracture base of the first proximal phalanx. Electronically Signed: Ward Huerta MD at 13:27 EST , Knee X-Ray 11/22/21 12:05 IMPRESSION: Normal x-ray examination of the knee. Electronically Signed: Ward Huerta MD at 13:28 EST Reading Location ID and State: [id number] / [employer] , Service support , Wrist X-Ray 11/22/21 12:05 IMPRESSION: No acute fracture or dislocation. Electronically Signed: Ward Huerta MD at 13:28 EST , Procedures <MANUEL Antonio - Last Filed: 11/22/21 15:43> Upper Extremity Splints Upper Extremity Splint: Thumb Spica and Wrist Spica Discharge Plan Triage Chief Complaint: Fall ED Provider: David Alaniz Dx/Rx/DC Orders Clinical Impression: Fall, Fracture of thumb, Closed fracture of radial head, Contusion of rib Instructions: Treating Hand Fractures, ED Fracture, Finger, Closed, ED Fracture, Upper Extremity, ED Rib Contusion or Minor Fracture Prescriptions: New oxycodone-acetaminophen [Percocet] 5-325 mg tablet 1 tab PO Q6H PRN (Reason: pain) 3 Days Qty: 10 RF: 0 No Action Tamsulosin Hcl 0.4 MG capsule 0.4 mg PO DAILY RF: 0 omeprazole 20 mg capsule,delayed release(DR/EC) 20 mg PO DAILY RF: 0 Primary Care Provider: Greg Osborne Referrals: Servando Alston DO [STAFF PHYSICIAN] - 2 Days (Please see an retirement benefits specialist.) Greg Osborne MD [Primary Care Provider] - Activity Restrictions/Additional Instructions: Please keep the splint dry, keep your arm in a sling. You need to follow-up with orthopedics. Please use pain medicine as needed. May use ibuprofen Disposition Disposition: Home, Self Care Discharge Date/Time: 11/22/21 16:08
[2021-11-22 12:18] LABS: Absolute Lymphocyte Count 3.55 X10^3/uL (0.83-4.51); Absolute Neutrophil Count 6.1 X10^3/uL (2.0-7.7); Basophil# 0.11 X10^3/uL; Eosinophil# 0.41 X10^3/uL; Eosinophils% 3.6 % (0-5); Hematocrit 41.9 % (40-54); Hemoglobin 14.4 g/dL (13.0-16.5); Lymphocyte # 3.55 X10^3/ul (0.83-4.51); Lymphocyte % 31.1 % (19-41); Mean Corp Hgb Conc 34.4 g/dL (32-36); Mean Corpuscular Hgb 31.1 pg (27.0-32.0); Mean Corpuscular Volume 90.5 fL (80-94); Mean Platelet Vol. 9.2 fl (6.2-12.0); Monocyte# 1.21 X10^3/uL; Monocyte% 10.6 % (0-10); NRBC Flagged by Analyzer 0 % (0-5); Neutrophil # 6.06 X10^3/uL (2.7-7.7); Neutrophil % 53.2 % (47-70); Platelet Count 330 K/mm3 (150-450); RBC Distribution Width CV 13.3 % (11.6-14.6); RBC Distribution Width SD 44.2 fl (35.1-43.9); Red Blood Count 4.63 M/mm3 (4.6-6.2); White Blood Count 11.4 K/mm3 (4.4-11.0)
[2021-11-22] MEDS: fentaNYL 100 MCG/2 ML Ampul 50 MCG IV ×2 (12:18→14:23)
[2021-11-22] MEDS: 0.9% Normal Saline 1,000 ML 100 ML IV (12:19)
[2021-11-22] MEDS: Ondansetron 4 MG/2 ML Vial IM (12:19)
[2021-11-22 12:28] LABS: Anion Gap 6 (5-15); BUN 28 mg/dL (7-18); BUN/Creat Ratio 25.5 RATIO (10-20); Chloride 103 mmol/L (98-107); EST Glomerular Filtration Rate 75 mL/min (>60); Est Glom Filt Rate - Afr Amer 91 mL/min (>60); Estimated Creatinine Clearance 81.23 ml/min; Glucose 159 mg/dL (74-106); Potassium 4.4 mmol/L (3.5-5.1); Sodium Level 136 mmol/L (136-145)
[2021-11-22 13:28] VITALS: BP 130/83; PULSE 89; RESP 18; O2SAT 95
[2021-11-22 14:40] LABS: Bacteria 0 SEEN /hpf (None Seen); Mucous, Urine 0 SEEN /hpf (<or=2+); Red Blood Cells-Urine 0 SEEN /hpf (0-5)
[2021-11-22 14:51] LABS: Color, Urine Yellow (Yellow); Glucose, Dipstick Normal (Normal); Ketone-Dipstick 5 mg/dl (Negative); Leukocyte Esterase-Dipstick Negative /ul (Negative); Nitrite-Dipstick Negative (Negative); Occult Blood-Urine Negative /ul (Negative); Protein-Dipstick 15 mg/dl (Negative); Specific Gravity, Urine 1.015 (1.002-1.030); Urine Bilirubin Dipstick Negative (Negative); Urine Clarity Clear (Clear); Urine Urobilinogen Normal (Normal); Urine pH 6.5 (5.0 - 8.0)
[2021-11-22 14:56] LABS: Amorphous Sediment 1+; Squamous Epithelial Cells - UA 0-5 SEEN /hpf (0-5); White Blood Cells 0-5 SEEN /hpf (0-5)
[2021-11-22 15:13] VITALS: BP 116/75; PULSE 102; RESP 26
[2021-11-22 16:06] VITALS: PULSE 99; RESP 17
== END 2021-11-22 16:08 | disposition home or self-care (01) ==
PROVIDERS: Emergency Provider Nurse Practitioner; PCP Internal Medicine; Visit Provider Nurse Practitioner
DX: S52.132A Displaced fracture of neck of left radius, initial encounter for closed fracture (principal); S52.122A Displaced fracture of head of left radius, initial encounter for closed fracture; S62.502A Fracture of unspecified phalanx of left thumb, initial encounter for closed fracture; S20.211A Contusion of right front wall of thorax, initial encounter; W11.XXXA Fall on and from ladder, initial encounter; E78.5 Hyperlipidemia, unspecified; N40.0 Benign prostatic hyperplasia without lower urinary tract symptoms; F31.9 Bipolar disorder, unspecified; F41.1 Generalized anxiety disorder; K21.9 Gastro-esophageal reflux disease without esophagitis; F17.210 Nicotine dependence, cigarettes, uncomplicated
CPT/HCPCS: 71260; 73090; 73110; 73130; 73564; 74177; 80048; 81001; 85025; 96361; 96372; 96374; 96376; 99284; J7030; Q9967; A4216; J2405

== ENCOUNTER → 2023-04-14 | Outpatient (CLI) | payer MEDICAID, SELFPAY ==
[2023-04-14 16:58] LABS: Absolute Lymphocyte Count 2.47 X10^3/uL (0.83-4.51); Absolute Neutrophil Count 6.2 X10^3/uL (2.0-7.7); Eosinophil# 0.27 X10^3/uL; Eosinophils% 2.7 % (0-5); Hematocrit 48.8 % (40-54); Hemoglobin 15.5 g/dL (13.0-16.5); Lymphocyte # 2.47 X10^3/ul (0.83-4.51); Lymphocyte % 24.9 % (19-41); Mean Corp Hgb Conc 31.8 g/dL (32-36); Mean Corpuscular Hgb 28.9 pg (27.0-32.0); Mean Platelet Vol. 10.4 fl (6.2-12.0); Monocyte# 0.85 X10^3/uL; Monocyte% 8.6 % (0-10); NRBC Flagged by Analyzer 0 % (0-5); Neutrophil # 6.17 X10^3/uL (2.7-7.7); Neutrophil % 62.4 % (47-70); Platelet Count 274 K/mm3 (150-450); RBC Distribution Width CV 13.7 % (11.6-14.6); RBC Distribution Width SD 45.8 fl (35.1-43.9); Red Blood Count 5.36 M/mm3 (4.6-6.2); White Blood Count 9.9 K/mm3 (4.4-11.0)
[2023-04-14 17:52] LABS: ALB/GLOB Ratio 1.1 RATIO (0.9-2.4); AST(SGOT) 32 U/L (15-37); Alanine Aminotransfer ALT/SGPT 59 U/L (16-61); Albumin, Serum 3.7 g/dL (3.2-5.0); Alkaline Phosphatase 51 U/L (45-117); Anion Gap 6 (5-15); BUN 17 mg/dL (7-18); BUN/Creat Ratio 15.3 RATIO (10-20); Calcium,Total 8.7 mg/dL (8.5-10.1); Chloride 105 mmol/L (98-107); Creatinine, Serum 1.11 mg/dL (0.70-1.30); EST Glomerular Filtration Rate 74 mL/min (>60); Est Glom Filt Rate - Afr Amer 90 mL/min (>60); Globulin 3.5 g/dL (2.2-4.2); Glucose 123 mg/dL (74-106); Potassium 4.1 mmol/L (3.5-5.1); Protein, Total 7.2 g/dL (6.4-8.2); Sodium Level 137 mmol/L (136-145)
[2023-04-14 18:43] LABS: HIV - WCH Non-Reactive (Nonreactive); Hepatitis C Antibody Non-Reactive (Nonreactive)
== END | disposition home or self-care (01) ==
PROVIDERS: PCP Internal Medicine; Visit Provider Family Medicine Geriatric Medicine
DX: Z00.00 Encounter for general adult medical examination without abnormal findings (principal); R53.83 Other fatigue; E78.5 Hyperlipidemia, unspecified; A64 Unspecified sexually transmitted disease
CPT/HCPCS: 36415; 80053; 84443; 85025; 86703; 86803

== ENCOUNTER → 2023-10-20 | Outpatient (CLI) | payer MEDICAID, SELFPAY ==
--- OUTSIDE RECORDS SUMMARY | 2023-10-20 11:57 | XMS RPT_ITS | CCD ---
Author Name Unknown Address [address] [place] [address] Organization [facility] Care Team Providers Care Clay Pigeon Setter Name Role Phone Marychuy Ovalles Unavailable Unavailable Jess Friend Unavailable Unavail able Greg De La O Primary Care Provider Greg De La O MD Primary Care Provider [phone] PHYSICIAN, NONE Primary Care Physician Unavailab Greg Galvez MD Primary Care Provider [phone] Unavailable Primary Care Provider UnavailVEENA Carvajal MD Attending Unavailable PHYSICIAN, NONE Primary Care Unavailable YARELI CARTAGENA DO Attending Unavailable PHYSICIAN, NONE Primary Care Unavailable PHYSICIAN, NONE Primary Care Unavailable NORMA QUEEN, DR HORAN Attending UnavailJACK Elizondo Attending Unavailable Greg De La O MD Primary Care Provider [phone] Medications Current Medications Medication Drug Class(es) Dates Sig (Normalized) Sig (Original) acetaminophen 325 mg / HYDROcodone bitartrate 5 mg oral tablet (1 source) Opioid Agonist Start: 11-20-2022 End: 11-23-2022 take 1 tablet by mouth every six hours as needed for pain [place]al[place] 325- 5 mg oral tablet Dose = 1 tab(s), Oral, q6h, PRN as needed for severe pain, X 3 day(s), # 12 tab(s), 0 Refill(s), Prepatellar bursitis, left knee, 100 Start Date: 11/20/22 Stop Date: 11/23/22 Status: Ordered calcium chloride 0.0014 meq/ml / potassium chloride 0.004 meq/ml / sodium chloride 0.103 meq/ml / sodium lactate 0.028 meq/ml injectable solution (1 source) Start: 11-28-2021 lactated ringers infusion cephalexin 500 mg oral capsule (3 sources) Cephalosporin Antibacterial Start: 11-14-2022 End: 11-24-2022 cephalexin 500 mg oral capsule Dose : 500 mg = 1 cap(s), Oral, QID, X 10 day(s), # 40 cap(s), 0 Refill(s), 11/24/22 21:27:00 EST, 100 Start Date: 11/14/22 Stop Date: 11/24/22 Status: Ordered Completed/Discontinued Medications Medication Drug Class(es) Dates Sig (Normalized) Sig (Original) acetaminophen 500 mg oral tablet (1 source) Start: 11-28-2021 End: 11-28-2021 acetaminophen (TYLENOL) tablet 1,000 mg acetaminophen 325 mg / oxyCODONE hydrochloride 5 mg oral tablet (5 sources) Opioid Agonist Start: 11-28-2021 End: 12-09-2021 take 1 tablet by mouth every eight hours as needed for pain oxyCODONE-acetamino phen (PERCOCET) 5-325 MG per tablet Indications: Closed displaced fracture of proximal phalanx of left thumb, initial encounter Take 1 tablet by mouth every 8 hours as needed for Pain for up to 7 days. Do not take additional Tylenol (Acetaminophen) while taking Percocet. Wean down from Percocet as quickly as possible to avoid dependence. 21 tablet 0 11/28/2021 12/09/2021 Discontinued (REORDER) Problems Active Problems Problem Classification Problem Date Documented Date Episodic/Chronic Alcohol-related disorders (5 sources) H/O: alcoholism; Translations: [Alcohol dependence, in remission] Onset: 10-15-2018 10-15-2018 Chronic Anxiety disorders (6 sources) Generalized anxiety disorder; Translations: [Generalized anxiety disorder] Onset: 10-13-2018 10-13-2018 Chronic Esophageal disorders (6 sources) Gastroesophageal reflux disease; Translations: [Gastro-esophageal reflux disease without esophagitis] Onset: 10-13-2018 10-14-2018 Chronic Fracture of upper limb (1 source) Closed fracture thumb proximal phalanx; Translations: [Displaced fracture of proximal phalanx of left thumb, initial encounter for closed fracture] Episodic Hyperplasia of prostate (6 sources) Nocturia due to benign prostatic hypertrophy; Translations: [Benign prostatic hyperplasia with lower urinary tract symptoms] Onset: 10-13-2018 Chronic Immunizations and screening for infectious disease (1 source) Vaccination needed; Translations: [Encounter for immunization] Episodic Mood disorders (6 sources) Depressive disorder; Translations: [Depressive disorder] Onset: 10-15-2018 10-15-2018 Chronic Osteoarthritis (5 sources) Osteoarthrosis of the carpometacarpal joint of the thumb; Translations: [Unilateral primary osteoarthritis of first carpometacarpal joint, right hand] Onset: 09-26-2020 09-26-2020 Chronic Other connective tissue disease (1 source) Hand pain; Translations: [Pain in right hand] Onset: 07-02-2022 Episodic Other connective tissue disease (3 sources) Pain in right hand 07-02-2022 Episodic Other connective tissue disease (1 source) Prepatellar bursitis of left knee; Translations: [Prepatellar bursitis, left knee] Onset: 11-20-2022 Episodic Other infections; including parasitic (1 source) Personal history of other infectious and parasitic diseases; Translations: [History of COVID-19] Episodic Other lower respiratory disease (1 source) Cough; Translations: [Cough, unspecified type] Episodic Other nervous system disorders (5 sources) Carpal tunnel syndrome of right wrist; Translations: [Carpal tunnel syndrome, right upper limb] Onset: 09-26-2020 09-26-2020 Chronic Other nervous system disorders (5 sources) Ulnar neuropathy of right arm; Translations: [Lesion of ulnar nerve, right upper limb] Onset: 09-26-2020 09-26-2020 Chronic Other nutritional; endocrine; and metabolic disorders (5 sources) Obese class I; Translations: [Obesity, unspecified] Onset: 05-11-2019 05-11-2019 Chronic Other screening for suspected conditions (not mental disorders or infectious disease) (1 source) Patient encounter status; Translations: [Encounter for screening for malignant neoplasm of colon] Episodic Poisoning by other medications and drugs (2 sources) Overdose of opiate; Translations: [Poisoning by unspecified narcotics, accidental (unintentional), initial encounter] Onset: 11-25-2022 Episodic Skin and subcutaneous tissue infections (1 source) Cellulitis; Translations: [Cellulitis of unspecified part of limb] Onset: 11-14-2022 Episodic Unclassified (1 source) Unknown / UNK(Unknown) Onset: 03-25-2018 Past or Other Problems Problem Classification Problem Date Documented Da te Episodic/Chronic Diabetes mellitus without complication (5 sources) Prediabetes; Translations: [Prediabetes] Onset: 06-13-2020 06-13-2020 Episodic Other connective tissue disease (5 sources) Ganglion cyst of left hand; Translations: [Ganglion, left hand] Onset: 09-28-2018 09-28-2018 Episodic Residual codes; unclassified (5 sources) History of substance abuse; Translations: [Personal history of other specified conditions] Onset: 10-14-2018 10-14-2018 Episodic Residual codes; unclassified (6 sources) Tobacco use and exposure - finding; Translations: [Tobacco use] Onset: 11-09-2018 11-09-2018 Episodic Spondylosis; intervertebral disc disorders; other back problems (5 sources) Chronic low back pain; Translations: [Chronic left-sided low back pain without sciatica] Onset: 02-15-2020 02-15-2020 Episodic Unclassified (1 source) PASSED OUT,BUMP ON LEFT HAND,CONSTANT URINATION Onset: 03-25-2018 Results Test Name Value Interpretation Reference Range Facil ity Vital Signs Date Time Vital Sign Value Performing Clinician Facility 11-24-2022 23:00-0500 Diastolic blood pressure 87 mm[Hg] Jack Pelaez MD Work Phone: [facility] [employer] [facility] 11-24-2022 23:00-0500 Heart rate 94 /min Jack Pelaez MD Work Phone: [facility] [employer] [facility] 11-24-2022 23:00-0500 Respiratory rate 18 /min Jack Pelaez MD Work Phone: [facility] [employer] [facility] 11-24-2022 23:00-0500 SaO2% (BldA) [Mass fraction] 94 % Jack Pelaez MD Work Phone: [facility] [employer] [facility] 11-24-2022 23:00-0500 Systolic blood pressure 121 mm[Hg] Jack Pelaez MD Work Phone: [facility] [employer] [facility] 11-24-2022 22:12-0500 Body temperature 98.01 [degF] [facility] 11-24-2022 22:04-0500 Body height 175.3 cm [facility] 11-24-2022 22:04-0500 Body mass index (BMI) [Ratio] 32.49 kg/m2 Jack Pelaez MD Work Phone: [facility] 11-24-2022 22:04-0500 Body weight 99.79 kg Jack Pelaez MD Work Phone: [facility] 11-20-2022 13:37-0500 Diastolic Blood Pressure Non-Invasive 100 1 VEENA GRANADO MD [facility] 11-20-2022 13:37-0500 Heart rate 72 /min VEENA GRANADO MD [facility] 11-20-2022 13:37-0500 Respiratory rate 18 /min VEENA GRANADO MD [facility] 11-20-2022 13:37-0500 Systolic Blood Pressure Non-Invasive 135 1 VEENA GRANADO MD [facility] 11-20-2022 10:23-0500 Body height 175.3 cm VEENA GRANADO MD [facility] 11-20-2022 10:23-0500 Body temperature 98.06 [degF] VEENA GRANADO MD [facility] 11-20-2022 10:23-0500 Body weight 100 kg VEENA GRANADO MD [facility] 11-20-2022 10:23-0500 Diastolic Blood Pressure Non-Invasive 91 1 VEENA GRANADO MD [facility] 11-20-2022 10:23-0500 Heart rate 88 /min VEENA GRANADO MD [facility] 11-20-2022 10:23-0500 Respiratory rate 18 /min VEENA GRANADO MD [facility] 11-20-2022 10:23-0500 Systolic Blood Pressure Non-Invasive 144 1 VEENA GRANADO MD [facility] 11-14-2022 21:05-0500 Body temperature 98.6 [degF] DR MARLINE GREEN MD [facility] 11-14-2022 21:05-0500 Body weight [address] MARLINE GREEN MD [facility] 11-14-2022 21:05-0500 Diastolic Blood Pressure Non-Invasive [address] MARLINE GREEN MD [facility] 11-14-2022 21:05-0500 Heart rate 94 /min DR MARLINE GREEN MD [facility] 11-14-2022 21:05-0500 Respiratory rate 16 /min DR MARLINE GREEN MD [facility] 11-14-2022 21:05-0500 Systolic Blood Pressure Non-Invasive [address] MARLINE GREEN MD [facility] 07-02-2022 00:38-0400 Body height 175.3 cm YARELI CARTAGENA DO [facility] 07-02-2022 00:38-0400 Body temperature 98.24 [degF] YARELI CARTAGENA DO [facility] 07-02-2022 00:38-0400 Body weight 102.3 kg YARELI CARTAGENA DO [facility] 07-02-2022 00:38-0400 Diastolic blood pressure 88 mm[Hg] YARELI PARADAKA DO [facility] 07-02-2022 00:38-0400 Heart rate 75 /min YARELI PARADAKA DO [facility] 07-02-2022 00:38-0400 Respiratory rate 18 /min YARELI PARADAKA DO [facility] 07-02-2022 00:38-0400 Systolic blood pressure 136 mm[Hg] YARELI PARADAKA DO [facility] 04-18-2022 13:11-0400 Body height 175.3 cm Greg De La O MD Work Phone: [facility] 04-18-2022 13:11-0400 Body temperature 97.3 [degF] Greg De La O MD Work Phone: [facility] 04-18-2022 13:11-0400 Body weight 103.42 kg Greg De La O MD Work Phone: [facility] 04-18-2022 13:11-0400 Diastolic blood pressure 64 mm[Hg] Greg De La O MD Work Phone: [facility] 04-18-2022 13:11-0400 Heart rate 107 /min Greg De La O MD Work Phone: [facility] 04-18-2022 13:11-0400 Respiratory rate 14 /min Greg De La O MD Work Phone: [facility] 04-18-2022 13:11-0400 SaO2% (BldA) [Mass fraction] 99 % Greg De La O MD Work Phone: [facility] 04-18-2022 13:11-0400 Systolic blood pressure 114 mm[Hg] Greg De La O MD Work Phone: [facility] 11-28-2021 18:43-0500 Diastolic blood pressure 61 mm[Hg] Theodore Cantu MD Work Phone: [facility] 11-28-2021 18:43-0500 Heart rate 79 /min Theodore Cantu MD Work Phone: [facility] 11-28-2021 18:43-0500 Respiratory rate 20 /min Theodore Cantu MD Work Phone: [facility] 11-28-2021 18:43-0500 SaO2% (BldA) [Mass fraction] 96 % Theodore Cantu MD Work Phone: [facility] 11-28-2021 18:43-0500 Systolic blood pressure 109 mm[Hg] Theodore Cantu MD Work Phone: [facility] 11-28-2021 18:07-0500 Body temperature 97.7 [degF] Theodore Cantu MD Work Phone: [facility] 11-28-2021 13:57-0500 Body height 175.3 cm Theodore Cantu MD Work Phone: [facility] 11-28-2021 13:50-0500 Body mass index (BMI) [Ratio] 31.75 kg/m2 Theodore Cantu MD Work Phone: [facility] 11-28-2021 13:50-0500 Body weight 97.52 kg Theodore Cantu MD Work Phone: [facility] Encounters Encounter Date Encounter Type Care Provider Facility Start: 06-02-2023 Telephone encounter Micha koehler MD Work Phone: Orthopaedics Procedures Date Procedure Procedure Detail Performing Clinician Start: 11-24-2022 Assay of lactate Jack Pelaez MD Work Phone: Start: 11-24-2022 Drug screen, qualitate/multi Jack Pelaez MD Work Phone: Start: 11-24-2022 Urinalysis microscopic only Jack Pelaez MD Work Phone: Start: 11-24-2022 Urnls dip stick/tabl et rgnt auto w/o microscopy Jack Pelaez MD Work Phone: Start: 11-24-2022 Radiologic exam ches t single view Jack Pelaez MD Work Phone: Start: 11-24-2022 Ecg routine ecg w/le ast 12 lds w/i&r Jack Pelaez MD Work Phone: Start: 11-24-2022 Assay of ethanol Jack Pelaez MD Work Phone: Start: 11-24-2022 End: 11-24-2022 Comprehensive metabolic panel Jack Pelaez MD Work Phone: Start: 04-18-2022 [employer] COVI D-19 VACCINE, AGE 12+ YR ([place] TOP) Greg De La O MD Work Phone: Start: 11-28-2021 OPERATIVE REPORT Physic shilpa Generic Start: 10-13-2018 Lipid 1996 panel - S neftali or Plasma Micha Huston MD Work Phone: Plan of Treatment Date Care Activity Detail Author Start: 02-10-2037 Pneumococcal 0-64 years Vaccine (2 of 2 - PPSV23) Pneumococcal 0-64 years Vaccine (2 of 2 - PPSV23) [facility] Start: 10-20-2026 DTaP/Tdap/Td vaccine (3 - Td or Tdap) DTaP/Tdap/Td vaccine (3 - Td or Tdap) [facility] Start: 10-20-2026 Urine microalbumin profile [facility] Start: 10-13-2023 Lipid 1996 panel - Serum or Plasma Lipid Screening [facility] Start: 10-13-2023 LIPID SCREEN LIPID SCREEN [facility] Start: 09-26-2023 DIABETES SCREEN DIABETES SCREEN [facility] Start: 09-26-2023 Diabetes Screening Diabetes Screening [facility] Start: 05-22-2023 Influenza [facility] Start: 08-19-2022 COVID-19 VACCINE (4 - Booster for Moderna series) COVID-19 VACCINE (4 - Booster for Moderna series) [facility] Start: 06-13-2022 COVID-19 VACCINE (4 - Booster for Moderna series) COVID-19 VACCINE (4 - Booster for Moderna series) [facility] Start: 06-13-2022 Covid-19 Vaccine (4 - Moderna series) Covid-19 Vaccine (4 - Moderna series) [facility] Start: 05-22-2022 Influenza vaccination [facility] Start: 04-21-2022 Influenza vaccination Flu vaccine (#1) [facility] Start: 04-18-2022 End: 06-18-2022 CBC panel - Blood by Automated count CBC Lab Routine Depressive disorder Generalized anxiety disorder Expected: 04/18/2022, Expires: 06/18/2022 [facility] Work Phone: Immunizations Immunization Date Immunization Notes Care Provider Fa cili 04-18-2022 COVID-19 vaccine, ag e 12+ yr ([employer] - [place]) Greg De La O MD Work Phone: [facility] Work Phone: 01-10-2021 COVID-19 vaccine, fu ll dose (MODERNA) Greg De La O MD Work Phone: [facility] Work Phone: 12-13-2020 COVID-19 vaccine, fu ll dose (MODERNA) Greg De La O MD Work Phone: [facility] Work Phone: 06-11-2020 influenza, injectabl e, quadrivalent, contains preservative Greg De La O MD Work Phone: [facility] Work Phone: 06-11-2020 pneumococcal polysaccharide vaccine, 23 valent Greg De La O MD Work Phone: [facility] Work Phone: 06-11-2020 influenza virus vacc ine, unspecified formulation Micha Huston MD Work Phone: [facility] 06-21-2018 influenza, injectabl e, quadrivalent, preservative free Greg De La O MD Work Phone: [facility] Work Phone: 10-20-2016 tetanus toxoid, redu quirino diphtheria toxoid, and acellular pertussis vaccine, adsorbed Greg De La O MD Work Phone: [facility] Work Phone: 08-13-2016 influenza, injectabl e, quadrivalent, contains preservative Greg De La O MD Work Phone: [facility] Work Phone: 03-23-2013 tetanus toxoid, redu quirino diphtheria toxoid, and acellular pertussis vaccine, adsorbed Greg De La O MD Work Phone: [facility] Work Phone: Payers Date Payer Category Payer Private Health Insurance [facility] [id number] 2018 Medicaid [facility] MEDICAID [facility] [employer] MEDICAID [id number] 2018-Present [phone] [address] [place] [address] Medicaid [id number] 2018 Medicaid [id number] 2018 Unknown [id number] 1972 Unknown [id number] 1972 Unknown [id number] 1972 Unknown [id number] Social History Date Type Detail Facility Start: 11-21-1991 End: 04-18-2022 Tobacco smoking status CTIS Smokes tobacco daily [facility] Work Phone: Start: 11-27-2021 End: 04-18-2022 Tobacco use and exposure Smokeless tobacco non-user [facility] Work Phone: Start: 11-28-2021 End: 11-24-2022 Alcohol intake Current drinker of alcohol (finding) [facility] Work Phone: Start: 11-28-2021 History SDOH Alcohol Comment occasional [facility] Work Phone: Start: 1970 Sex Assigned At Not on file [facility] Work Phone: Start: 11-30-2021 End: 11-25-2022 Exposure to SARS-CoV-2 (event) Not sure [facility] Start: 12-04-2021 End: 07-02-2022 Tobacco smoking status CTIS Ex-smoker [facility] Start: 11-21-1991 History of tobacco use Cigarette Smo ker [facility] Work Phone: Start: 03-14-2022 Alcohol intake Current non-dr movie actor of alcohol (finding) [facility] Start: 03-14-2022 End: 05-05-2023 Alcohol intake [facility] Start: 02-15-2020 End: 06-11-2020 History SDOH Alcohol Frequency 1 [facility] Start: 02-15-2020 End: 06-11-2020 History SDOH Alcohol Std Drinks 4 [facility] Start: 11-09-2018 History SDOH Alcohol Comment patient states not currently drinking 11/09/2018 for past week, recent past use 12 beers per week [facility] Start: 02-15-2020 History SDOH Social Connections Membership 2 [facility] Start: 02-15-2020 History SDOH Social Connections Living 7 [facility] Start: 02-15-2020 History SDOH Physica l Activity MPS 6 [facility] Start: 02-15-2020 Education 12 [facility] Start: 04-18-2022 Alcohol intake Ex-drinker (finding) [facility] Start: 04-18-2022 History SDOH Alcohol Comment none for 6 months, recovering. [facility] Sex Assigned At Sex [facility] Start: 02-15-2020 End: 05-05-2023 Social connection and isolation panel [facility] Do you belong to any clubs or organizations such as congregational groups, unions, fraternal or athletic groups, or school groups? No [facility] Are you now , , , , never or living with a partner? Never [facility] How often to you hav e a drink containing alcohol? Never [facility] Work Phone: Average Number of Drinks Not on file [facility] Do you feel stress - tense, restless, nervous, or anxious, or unable to sleep at night because your mind is troubled all the time - these days [OSQ] Rather much [facility] In the past 12 month s, was there a time when you were not able to pay the mortgage or rent on time? Yes [facility] Functional Status Date Assessment Result Facility 11-20-2022 Functional Status Independent [facility] 11-20-2022 Functional Status ID band on, Call device within reach, Bed in low position, Wheels locked, Upper/Half-Length side-rails up [facility] 11-14-2022 Functional Status Standard Safet y ID band on, Call device within reach, Bed in low position, Wheels locked, Upper/Half-Length side-rails up, Bedside Cart Locked, Safety level maintained [facility] 07-02-2022 Functional Status Ambulating in warren, Ambulating in room, Awake [facility] Mental Status Date Assessment Result Facility 11-20-2022 Mental Status Orientation Oriented x 4 [facility] 11-20-2022 Mental Status [facility] 11-14-2022 Mental Status Orientation Oriented x 4 [facility] 07-02-2022 Mental Status Oriented x 4 [facility] Clinical Notes 10-19-2020 to 06-02-2023 Telephone Encounter - Shila Santiago - 06/02/2023 3:44 PM EDTTelephone Encounter - Katerina Neumann - 06/02/2023 10:00 AM ALENATGreg De La O MD - 04/18/2022 1:24 PM EDTInstructions Note Date & Type Note Facility 06-02-2023 Miscellaneous Notes Patient's number has been updated & patient has been rescheduled. Called patient to let him know we need to change his appt this afternoon due to provider going in surgery. Unfortunately phone is out of service. documented in this encounter [facility] 11-25-2022 Note . MICRO - Microbiology PROCEDURE: Blood Culture (bacterial) [*1] SOURCE: Blood BODY SITE: COLLECTED DATE/TIME: 11/20/2022 10:50 EST RECEIVED DATE/TIME: 11/20/2022 15:06 EST START DATE/TIME: 11/20/2022 15:06 EST FREE TEXT SOURCE: FINAL REPORTS Final Report [] Verified Date/Time/Personnel: 11/25/2022 15:59 EST Blood Culture: No Growth at 5 days. PRELIMINARY REPORTS Preliminary Report [] Verified Date/Time/Personnel: 11/20/2022 15:59 EST Culture has been received in lab and is no growth to date. Routine cultures are held for 5 days. Performing Locations *1: This test was performed at: [address], [address] [place] [address] ([place]) 11-25-2022 Note . MICRO - Microbiology PROCEDURE: Blood Culture (bacterial) [*1] SOURCE: Blood BODY SITE: COLLECTED DATE/TIME: 11/20/2022 10:50 EST RECEIVED DATE/TIME: 11/20/2022 15:06 EST START DATE/TIME: 11/20/2022 15:06 EST FREE TEXT SOURCE: FINAL REPORTS Final Report [] Verified Date/Time/Personnel: 11/25/2022 15:59 EST Blood Culture: No Growth at 5 days. PRELIMINARY REPORTS Preliminary Report [] Verified Date/Time/Personnel: 11/20/2022 15:59 EST Culture has been received in lab and is no growth to date. Routine cultures are held for 5 days. Performing Locations *1: This test was performed at: [address], [address] [place] [address] ([place]) 11-20-2022 Hospital Discharg e instructions Patient Education 11/20/2022 11:56:24 Bursitis Bursitis You have bursitis. This is an inflammation of the bursa. These are small, fluid-filled sacs that surround the larger joints of the body. The bursa help the muscles and tendons move smoothly over the joints. Bursitis often happens in the shoulder. But it can also affect the elbows, hips, pelvis, knees, toes, and heels. Bursitis can be caused by injury, overuse of the joint, or infection of the bursa. Symptoms include pain and tenderness over a joint. Symptoms get worse with movement. Bursitis is treated with an anti-inflammatory medicine and by resting the joint. More severe cases require injection of medicine directly into the bursa. In the case of infection, surgery and antibiotics may be needed. Home care Rest the painful joint and protect it from movement. This will allow the inflammation to heal faster. Apply an ice pack over the injured area for no more than 15 to 20 minutes. Do this every 3 to 6 hours for the first 24 to 48 hours. Keep using ice packs 3 to 4 times a day until the pain and swelling improves. To make an ice pack, put ice cubes in a sealed plastic bag. Wrap the bag in a clean, thin towel or cloth. Never put ice or an ice pack directly on the skin. As the ice melts, be careful to not to get the wrap or splint wet. You may take [id number] pain medicine to treat pain and inflammation, unless another medicine was prescribed. Anti-inflammatory pain medicines may be more effective. Talk with your provider before using these medicines if you have chronic liver or kidney disease, or ever had a stomach ulcer or gastrointestinal bleeding. As your symptoms improve, slowly begin to move the joint. Don't overuse the joint. This may cause the symptoms to flare up again. When to seek medical advice Call your healthcare provider right away if any of these occur: Redness or warmth over the painful area Increasing pain or swelling at the joint Fever of 100.4 F (38 C) or above lasting for 24 to 48 hours, or as advised [facility] [id number] [facility] [employer]. [address] [place] [address], [place] [address]. All rights reserved. This information is not intended as a substitute for professional medical care. Always follow your healthcare professional's instructions. 11/20/2022 11:56:16 Cellulitis Skin Infection Cellulitis Cellulitis is an infection of the deep layers of skin. A break in the skin, such as a cut or scratch, can let bacteria under the skin. If the bacteria get to deep layers of the skin, it can be serious. If not treated, cellulitis can get into the bloodstream and lymph nodes. The infection can then spread throughout the body. This causes serious illness. Cellulitis causes the affected skin to become red, swollen, warm, and sore. The reddened areas have a visible border. An open sore may leak fluid (pus). You may have a fever, chills, and pain. Cellulitis is treated with antibiotics taken for 7 to 10 days. An open sore may be cleaned and covered with cool wet gauze. Symptoms should get better 1 to 2 days after treatment is started. Make sure to take all the antibiotics for the full number of days until they are gone. Keep taking the medicine even if your symptoms go away. Home care Follow these tips: Limit the use of the part of your body with cellulitis. If the infection is on your leg, keep your leg raised while sitting. This will help to reduce swelling. Take all of the antibiotic medicine exactly as directed until it is gone. Do not miss any doses, especially during the first 7 days. Don t stop taking the medicine when your symptoms get better. Keep the affected area clean and dry. Wash your hands with soap and warm water before and after touching your skin. Anyone else who touches your skin should also wash his or her hands. Don't share towels. Follow-up care Follow up with your healthcare provider, or as advised. If your infection does not go away on the first antibiotic, your healthcare provider will prescribe a different one. When to seek medical advice Call your healthcare provider right away if any of these occur: Red areas that spread Swelling or pain that gets worse Fluid leaking from the skin (pus) Fever higher of 100.4 F (38.0 C) or higher after 2 days on antibiotics [id number] [employer]. [address] [place] [address], [place] [address]. All rights reserved. This information is not intended as a substitute for professional medical care. Always follow your healthcare professional's instructions. Follow Up Care 11/20/2022 10:13:41 With:HUA LEE Address: [address] [place] [address] [address] [place] [address] [phone] Business (1) When:2-4 days Comments:Schedule appointment for close follow-up.Elevate your left leg is much as possible.Limit weightbearing and activity as tolerated.Use Tylenol, Advil or Aleve for pain and fever as needed.Use Lavalette as prescribed for severe pain as needed.Finish antibiotics (cephalexin and Bactrim) as previously prescribed.Return to ED if symptoms worsen. [facility] 11-20-2022 Note Discharge Instructions Thank you for allowing [facility] to assist you with your healthcare needs. The following is important discharge information regarding your hospital visit. Diagnosis from Today's Visit Knee pain-swelling Prepatellar bursitis, left knee What to Do Next Instructions from Your Care Team No qualifying data available. Post Acute Orders No qualifying data available. You Need to Schedule the Following Appointments Follow Up with HUA LEE When Within 2-4 days Why: Schedule appointment for close follow-up. Elevate your left leg is much as possible. Limit weightbearing and activity as tolerated. Use Tylenol, Advil or Aleve for pain and fever as needed. Use Lavalette as prescribed for severe pain as needed. Finish antibiotics (cephalexin and Bactrim) as previously prescribed. Return to ED if symptoms worsen. Where: [address] [place] [address] [address] [place] [address] [phone] Business (1) Allergies NKA Medications Please ask your primary doctor or pharmacist before taking any other medication not listed, including over the counter drugs, herbal medications, vitamins and or supplements as they may interact with your home medications. What How Much When Why Instructions Last Dose New acetaminophen-hydrocodone (Lavalette 325- 5 mg oral tablet) 1 tab(s) by mouth Every 6 hours as needed for as needed for severe pain Prepatellar bursitis, left knee Duration: 3 Days Printed Prescription Unchanged cephalexin (cephalexin 500 mg oral capsule) 1 cap by mouth Four (4) times a day Duration: 10 Days Unchanged omeprazole (omeprazole 20 mg oral delayed release capsule) 1 cap by mouth Once a day Unchanged sulfamethoxazole-trimethoprim (Bactrim DS 800 mg-160 mg oral tablet) 1 tab(s) by mouth Two (2) times a day Duration: 10 Days Unchanged tamsulosin (tamsulosin 0.4 mg oral capsule) 1 cap by mouth Once a day Please take this list to your next doctor s visit. Bring all medications you take, including over the counter medications, herbals and other supplements with you to your doctor s visit. Patients and families are reminded to discard old lists and to update any records with all medication providers or retail pharmacies. Education Materials Bursitis You have bursitis. This is an inflammation of the bursa. These are small, fluid-filled sacs that surround the larger joints of the body. The bursa help the muscles and tendons move smoothly over the joints. Bursitis often happens in the shoulder. But it can also affect the elbows, hips, pelvis, knees, toes, and heels. Bursitis can be caused by injury, overuse of the joint, or infection of the bursa. Symptoms include pain and tenderness over a joint. Symptoms get worse with movement. Bursitis is treated with an anti-inflammatory medicine and by resting the joint. More severe cases require injection of medicine directly into the bursa. In the case of infection, surgery and antibiotics may be needed. Home care Rest the painful joint and protect it from movement. This will allow the inflammation to heal faster. Apply an ice pack over the injured area for no more than 15 to 20 minutes. Do this every 3 to 6 hours for the first 24 to 48 hours. Keep using ice packs 3 to 4 times a day until the pain and swelling improves. To make an ice pack, put ice cubes in a sealed plastic bag. Wrap the bag in a clean, thin towel or cloth. Never put ice or an ice pack directly on the skin. As the ice melts, be careful to not to get the wrap or splint wet. You may take elvi-sxf-oznnbvf pain medicine to treat pain and inflammation, unless another medicine was prescribed. Anti-inflammatory pain medicines may be more effective. Talk with your provider before using these medicines if you have chronic liver or kidney disease, or ever had a stomach ulcer or gastrointestinal bleeding. As your symptoms improve, slowly begin to move the joint. Don't overuse the joint. This may cause the symptoms to flare up again. When to seek medical advice Call your healthcare provider right away if any of these occur: Redness or warmth over the painful area Increasing pain or swelling at the joint Fever of 100.4 F (38 C) or above lasting for 24 to 48 hours, or as advised Chills [id number] [employer]. [address] [place] [address]. All rights reserved. This information is not intended as a substitute for professional medical care. Always follow your healthcare professional's instructions. Cellulitis Cellulitis is an infection of the deep layers of skin. A break in the skin, such as a cut or scratch, can let bacteria under the skin. If the bacteria get to deep layers of the skin, it can be serious. If not treated, cellulitis can get into the bloodstream and lymph nodes. The infection can then spread throughout the body. This causes serious illness. Cellulitis causes the affected skin to become red, swollen, warm, and sore. The reddened areas have a visible border. An open sore may leak fluid (pus). You may have a fever, chills, and pain. Cellulitis is treated with antibiotics taken for 7 to 10 days. An open sore may be cleaned and covered with cool wet gauze. Symptoms should get better 1 to 2 days after treatment is started. Make sure to take all the antibiotics for the full number of days until they are gone. Keep taking the medicine even if your symptoms go away. Home care Follow these tips: Limit the use of the part of your body with cellulitis. If the infection is on your leg, keep your leg raised while sitting. This will help to reduce swelling. Take all of the antibiotic medicine exactly as directed until it is gone. Do not miss any doses, especially during the first 7 days. Don t stop taking the medicine when your symptoms get better. Keep the affected area clean and dry. Wash your hands with soap and warm water before and after touching your skin. Anyone else who touches your skin should also wash his or her hands. Don't share towels. Follow-up care Follow up with your healthcare provider, or as advised. If your infection does not go away on the first antibiotic, your healthcare provider will prescribe a different one. When to seek medical advice Call your healthcare provider right away if any of these occur: Red areas that spread Swelling or pain that gets worse Fluid leaking from the skin (pus) Fever higher of 100.4 F (38.0 C) or higher after 2 days on antibiotics [id number] [employer]. [address] [place] [address], [place] [address]. All rights reserved. This information is not intended as a substitute for professional medical care. Always follow your healthcare professional's instructions. Additional Information VACCINATE! IT SAVES LIVES! Members of the community who have not yet received the COVID-19 vaccine and would like to receive it can visit one of [facility] vaccine clinics. There are many vaccine clinic locations within the [facility]. For locations and available times, please visit [email or web address]/. It is important to note that some COVID mobile vaccine clinics are held outdoors and may be canceled in rainy or stormy conditions. To learn more about pediatric vaccinations (ages 5-11), we invite you to visit the [facility] webpage. https://www.[email or web address]/ pages/[email or web address]-Zigwa-Dxhyphmoqmy-Fr ycvymdyk-Oecca-Pfigmotuh.html To learn more about the COVID-19 vaccine, we invite you to visit the CDC website for a list of frequently asked questions. https://www.cdc.gov/coronavirus /2019-ncov/vaccines/faq.html [facility] Patient Portal Access Instructions: Stay connected with your healthcare team and access your personal medical information anytime with the [employer] Patient Portal. If you would like a full copy of your medical records please contact the [facility] Medical Records Department Thursday through Thursday between 8a.m. and 4:30p.m. Please follow the directions below to access the portal: 1.Access the email account you provided upon registration to the hospital.2.Look for an invitation email from [facility].3.Open the email and access the invitation link: Accept Invitation to [facility]4.Fill in the required young to create your account. Sign into [email or web address] with your username and password that you created in the above steps to stay up to date. You can then view a summary of results, a summary of your visits, and the ability to download your summaries to your computer or send the information securely to a physician. Remember that your healthcare information is confidential, so carefully consider who you will allow to register on the [employer] Patient Portal for access to your information. You can also access the [employer] Patient Portal on the [employer] stefania. Simply click on Health Records under Health Data and then click on the [employer] logo. HOW TO SAFELY DISPOSE OF PRESCRIPTION MEDICATIONS Please use one of the following methods to safely dispose of your unused medications. 1.Use a drug disposal kit: the drug disposal pouch allows you to safely discard your old and unused drugs. Ask your nurse to give you one when you are discharged.2.Visit a local take-back location: Many local pharmacies and police departments have programs that collect old and unwanted prescription drugs. Call your local pharmacy or go to http://[employer].Invenra/0J3Uo5q to find one close to you.3.Make use of household items: Use cat litter or old coffee grounds to dispose medications if other options are not available. Mix your drugs with these household products, seal them in an airtight container and throw it into the garbage. Call [facility]: [phone] to be sure your drugs can be disposed of in this way. Some medicines may require a different approach.4.Never flush your medications down the toilet. IF YOU HAVE BEEN PRESCRIBED AN OPIOIDS FOR PAIN If you have been prescribed an opioid (such as hydrocodone, oxycodone or morphine), it is critical to understand the possible side effects and risks of opioid pain medications. Even when taken as directed, opioids can have several side effects including: Tolerance, meaning you might need to take more of a medication for the same pain relief. Nausea, vomiting and/or constipation. Sleepiness, dizziness, dry mouth, confusion, depression or itching. Physical dependence, meaning you have withdrawal symptoms when a medication is stopped ? this can develop within a few days. KNOW YOUR RESPONSIBILITIES It is important to know exactly how much and how often to take the opioid pain medications you are prescribed. Never take opioids in higher amounts or more often than prescribed. Do not combine opioids with alcohol or other drugs that cause drowsiness, such as benzodiazepines, also known as benzos, including diazepam and alprazolam, muscle relaxants or sleep aids. Never sell or share prescription opioids. This is illegal. Store opioids in a secure place and out of reach of others (including children, family, friends and visitors). The last page(s) of this document has been signed and retained as a CHART COPY Signatures Patient Education Materials Bursitis Cellulitis Skin Infection Medication Leaflets My discharge plan and instructions have been reviewed and explained to me and I,TALIB BROWN understand my current condition and have read and understand these discharge instructions. I have received a written copy of the plan/instructions. If I have questions, I am aware that I should contact my doctor. 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 No radio-opaque foreign body or soft tissue gas is seen. No joint space narrowing or significant joint effusion. There is some prepatellar soft tissue swelling. IMPRESSION: No acute fracture seen. Prepatellar soft tissue swelling. Interpreted by: Jamie Corado MD Preliminary Report By: Jamie Corado MD Electronically signed By Jamie Corado MD Dictated Date: 11/20/2022 11:28:25 AM Prelim Date: 11/20/2022 11:29:01 AM Sign Date: 11/20/2022 11:29:01 AM Ordering Provider: VEENA GRANADO [facility] 11-20-2022 Note ORIGINAL EXAMINATION: THREE XRAY VIEWS OF THE LEFT KNEE11/20/2022 11:18 am XR left knee three views COMPARISON: None HISTORY: ORDERING SYSTEM PROVIDED HISTORY: Reason for Exam: Pain, trauma, pain, FINDINGS: There is no visualized acute fracture or dislocation. No radio-opaque foreign body or soft tissue gas is seen. No joint space narrowing or significant joint effusion. There is some prepatellar soft tissue swelling. IMPRESSION: No acute fracture seen. Prepatellar soft tissue swelling. Interpreted by: Jamie Corado MD Preliminary Report By: Jamie Corado MD Electronically signed By Jamie Corado MD Dictated Date: 11/20/2022 11:28:25 AM Prelim Date: 11/20/2022 11:29:01 AM Sign Date: 11/20/2022 11:29:01 AM Ordering Provider: [facility] 11-14-2022 [facility] instructions Patient Education 11/14/2022 21:28:51 Cellulitis Skin Infection Cellulitis Cellulitis is an infection of the deep layers of skin. A break in the skin, such as a cut or scratch, can let bacteria under the skin. If the bacteria get to deep layers of the skin, it can be serious. If not treated, cellulitis can get into the bloodstream and lymph nodes. The infection can then spread throughout the body. This causes serious illness. Cellulitis causes the affected skin to become red, swollen, warm, and sore. The reddened areas have a visible border. An open sore may leak fluid (pus). You may have a fever, chills, and pain. Cellulitis is treated with antibiotics taken for 7 to 10 days. An open sore may be cleaned and covered with cool wet gauze. Symptoms should get better 1 to 2 days after treatment is started. Make sure to take all the antibiotics for the full number of days until they are gone. Keep taking the medicine even if your symptoms go away. Home care Follow these tips: Limit the use of the part of your body with cellulitis. If the infection is on your leg, keep your leg raised while sitting. This will help to reduce swelling. Take all of the antibiotic medicine exactly as directed until it is gone. Do not miss any doses, especially during the first 7 days. Don t stop taking the medicine when your symptoms get better. Keep the affected area clean and dry. Wash your hands with soap and warm water before and after touching your skin. Anyone else who touches your skin should also wash his or her hands. Don't share towels. Follow-up care Follow up with your healthcare provider, or as advised. If your infection does not go away on the first antibiotic, your healthcare provider will prescribe a different one. When to seek medical advice Call your healthcare provider right away if any of these occur: Red areas that spread Swelling or pain that gets worse Fluid leaking from the skin (pus) Fever higher of 100.4 F (38.0 C) or higher after 2 days on antibiotics [id number] [employer]. [address] [place] [address]. All rights reserved. This information is not intended as a substitute for professional medical care. Always follow your healthcare professional's instructions. Follow Up Care 11/14/2022 21:04:24 With:HUA LEE Address: [address] [place] [address] [employer] [place] [address]- [phone] Business (1) When:2-4 days Comments:Take antibiotics as prescribed. Take daily pictures of the area to track progression. Follow-up with your doctor or orthopedist. Return if worsening or concerning symptoms such as high fever severe swelling of the leg. [facility] 11-14-2022 Emergency department Discharge summary Discharge Instructions Thank you for allowing [facility] to assist you with your healthcare needs. The following is important discharge information regarding your hospital visit. Diagnosis from Today's Visit Cellulitis, leg Knee pain-swelling What to Do Next Instructions from Your Care Team No qualifying data available. Post Acute Orders No qualifying data available. You Need to Schedule the Following Appointments Follow Up with HUA LEE When Within 2-4 days Why: Take antibiotics as prescribed. Take daily pictures of the area to track progression. Follow-up with your doctor or orthopedist. Return if worsening or concerning symptoms such as high fever severe swelling of the leg. Where: [address] [place] [address] [facility] [place] [address]- [phone] Business (1) Allergies NKA Medications Please ask your primary doctor or pharmacist before taking any other medication not listed, including over the counter drugs, herbal medications, vitamins and or supplements as they may interact with your home medications. What How Much When Instructions Last Dose New cephalexin (cephalexin 500 mg oral capsule) 1 cap by mouth Four (4) times a day Duration: 10 Days Printed Prescription New sulfamethoxazole-trimethoprim (Bactrim DS 800 mg-160 mg oral tablet) 1 tab(s) by mouth Two (2) times a day Duration: 10 Days Printed Prescription Unchanged omeprazole (omeprazole 20 mg oral delayed release capsule) 1 cap by mouth Once a day Unchanged tamsulosin (tamsulosin 0.4 mg oral capsule) 1 cap by mouth Once a day Please take this list to your next doctor s visit. Bring all medications you take, including over the counter medications, herbals and other supplements with you to your doctor s visit. Patients and families are reminded to discard old lists and to update any records with all medication providers or retail pharmacies. Education Materials Cellulitis Cellulitis is an infection of the deep layers of skin. A break in the skin, such as a cut or scratch, can let bacteria under the skin. If the bacteria get to deep layers of the skin, it can be serious. If not treated, cellulitis can get into the bloodstream and lymph nodes. The infection can then spread throughout the body. This causes serious illness. Cellulitis causes the affected skin to become red, swollen, warm, and sore. The reddened areas have a visible border. An open sore may leak fluid (pus). You may have a fever, chills, and pain. Cellulitis is treated with antibiotics taken for 7 to 10 days. An open sore may be cleaned and covered with cool wet gauze. Symptoms should get better 1 to 2 days after treatment is started. Make sure to take all the antibiotics for the full number of days until they are gone. Keep taking the medicine even if your symptoms go away. Home care Follow these tips: Limit the use of the part of your body with cellulitis. If the infection is on your leg, keep your leg raised while sitting. This will help to reduce swelling. Take all of the antibiotic medicine exactly as directed until it is gone. Do not miss any doses, especially during the first 7 days. Don t stop taking the medicine when your symptoms get better. Keep the affected area clean and dry. Wash your hands with soap and warm water before and after touching your skin. Anyone else who touches your skin should also wash his or her hands. Don't share towels. Follow-up care Follow up with your healthcare provider, or as advised. If your infection does not go away on the first antibiotic, your healthcare provider will prescribe a different one. When to seek medical advice Call your healthcare provider right away if any of these occur: Red areas that spread Swelling or pain that gets worse Fluid leaking from the skin (pus) Fever higher of 100.4 F (38.0 C) or higher after 2 days on antibiotics [id number] [employer]. [address] [place] [address]. All rights reserved. This information is not intended as a substitute for professional medical care. Always follow your healthcare professional's instructions. Additional Information VACCINATE! IT SAVES LIVES! Members of the community who have not yet received the COVID-19 vaccine and would like to receive it can visit one of [facility] vaccine clinics. There are many vaccine clinic locations within the [facility]. For locations and available times, please visit [email or web address]/. It is important to note that some COVID mobile vaccine clinics are held outdoors and may be canceled in rainy or stormy conditions. To learn more about pediatric vaccinations (ages 5-11), we invite you to visit the [facility] webpage. https://www.[email or web address].org/ pages/3538-Frghd-Wkrnttcmiif-Fr [email or web address].html To learn more about the COVID-19 vaccine, we invite you to visit the CDC website for a list of frequently asked questions. https://www.cdc.gov/coronavirus /2019-ncov/vaccines/faq.html [facility] Access Instructions: Stay connected with your healthcare team and access your personal medical information anytime with the [facility] Patient Portal. If you would like a full copy of your medical records please contact the [facility] Medical Records Department Thursday through Thursday between 8a.m. and 4:30p.m. Please follow the directions below to access the portal: 1.Access the email account you provided upon registration to the [facility].2.Look for an invitation email from [facility].3.Open the email and access the invitation link: Accept Invitation to [facility]4.Fill in the required young to create your account. Sign into [email or web address] with your username and password that you created in the above steps to stay up to date. You can then view a summary of results, a summary of your visits, and the ability to download your summaries to your computer or send the information securely to a physician. Remember that your healthcare information is confidential, so carefully consider who you will allow to register on the [facility] Patient Portal for access to your information. You can also access the [facility] Patient Portal on the Pirate3D. Simply click on Health Records under Health Data and then click on the ByRead logo. HOW TO SAFELY DISPOSE OF PRESCRIPTION MEDICATIONS Please use one of the following methods to safely dispose of your unused medications. 1.Use a drug disposal kit: the drug disposal pouch allows you to safely discard your old and unused drugs. Ask your nurse to give you one when you are discharged.2.Visit a local take-back location: Many local pharmacies and police departments have programs that collect old and unwanted prescription drugs. Call your local pharmacy or go to http://[employer].Invenra/7U9Ij6q to find one close to you.3.Make use of household items: Use cat litter or old coffee grounds to dispose medications if other options are not available. Mix your drugs with these household products, seal them in an airtight container and throw it into the garbage. Call [facility]: [phone] to be sure your drugs can be disposed of in this way. Some medicines may require a different approach.4.Never flush your medications down the toilet. IF YOU HAVE BEEN PRESCRIBED AN OPIOIDS FOR PAIN If you have been prescribed an opioid (such as hydrocodone, oxycodone or morphine), it is critical to understand the possible side effects and risks of opioid pain medications. Even when taken as directed, opioids can have several side effects including: Tolerance, meaning you might need to take more of a medication for the same pain relief. Nausea, vomiting and/or constipation. Sleepiness, dizziness, dry mouth, confusion, depression or itching. Physical dependence, meaning you have withdrawal symptoms when a medication is stopped ? this can develop within a few days. KNOW YOUR RESPONSIBILITIES It is important to know exactly how much and how often to take the opioid pain medications you are prescribed. Never take opioids in higher amounts or more often than prescribed. Do not combine opioids with alcohol or other drugs that cause drowsiness, such as benzodiazepines, also known as benzos, including diazepam and alprazolam, muscle relaxants or sleep aids. Never sell or share prescription opioids. This is illegal. Store opioids in a secure place and out of reach of others (including children, family, friends and visitors). The last page(s) of this document has been signed and retained as a CHART COPY Signatures Patient Education Materials Cellulitis Skin Infection Medication Leaflets My discharge plan and instructions have been reviewed and explained to me and I,TALIB BROWN understand my current condition and have read and understand these discharge instructions. I have received a written copy of the plan/instructions. If I have questions, I am aware that I should contact my doctor. 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: Date/Time: Relationship to Patient: Witness Name/Signature: Date/Time: [facility] 07-30-2022 Note Patient Outreach ( CIND) TALIB BROWN ([id number]) 1970 M Date Time Provider Department 07/30/22 GREG DE LA O During your visit today, we recorded the following information about you: Allergies As of Date: 07/30/2022 (No Known Allergies) Date Reviewed: 04/18/2022 Reviewed by: Su Ronquillo LPN - Fully Assessed Visit Diagnosis:Screening for colon cancer [Z12.11] Order(s):COLONOSCOPY SCREENING [GI51] Order #: [id number] FUTURE Prescriptions as of 08/04/2022 - buPROPion SR (WELLBUTRIN SR) 150 mg 12 hr tablet Take 1 tablet by mouth twice daily. - omeprazole (PRILOSEC) 20 mg capsule Take 1 capsule by mouth daily before breakfast. 1/2 hr before meal. - tamsulosin (FLOMAX) 0.4 mg Take 1 capsule by mouth twice daily. - therapeutic multivitamin (THERA VITAMIN) tablet Take 1 tablet by mouth once daily. Problem List As Of Date 07/30/2022 Noted Resolved Ganglion cyst of finger of left hand [M67.442] 09/28/2018 Benign prostatic hyperplasia with nocturia [N40*10/13/2018 Generalized anxiety disorder [F41.1] 10/13/2018 History of substance use disorder [Z87.898] 10/14/2018 GERD (gastroesophageal reflux disease) [K21.9] 10/13/2018 Depressive disorder [F32.A] 10/15/2018 Personal history of alcoholism (HCC) [F10.21] 10/15/2018 Tobacco use [Z72.0] 11/09/2018 Obesity, Class I, BMI 30-34.9 [E66.9] 05/11/2019 Chronic left-sided low back pain without sciati*02/15/2020 Prediabetes [R73.03] 06/13/2020 Carpal tunnel syndrome of right wrist [G56.01] 09/26/2020 Primary osteoarthritis of first carpometacarpal*09/26/2020 Ulnar neuropathy of right upper extremity [G56.*09/26/2020 Encounter Status:Closed by SHOLA BARLOW on 08/04/22 [facility] 07[facility]22 Hospital Discharg e instructions Patient Education 07/02/2022 00:47:16 Hand Sprain Hand Sprain A sprain is a stretching or tearing of the ligaments that hold a joint together. There are no broken bones. Sprains take 3 to 6 weeks, or longer to heal. A sprained hand may be treated with a splint or elastic wrap for support. Home care Keep your arm elevated to reduce pain and swelling. This is most important during the first 48 hours. Apply an ice pack over the injured area for 15 to 20 minutes every 3 to 6 hours. You should do this for the first 24 to 48 hours. You can make an ice pack by filling a plastic bag that seals at the top with ice cubes and then wrapping it with a thin towel. Continue the use of ice packs for relief of pain and swelling as needed. As the ice melts, be careful to avoid getting any wrap or splint wet. After 48 hours, apply heat (warm shower or warm bath) for 15 to 20 minutes several times a day, or alternate ice and heat. You may use uxzg-hut-aobddcr pain medicine to control pain, unless another pain medicine was prescribed. If you have chronic liver or kidney disease or ever had a stomach ulcer or gastrointestinal bleeding, talk with your healthcare provider before using these medicines. If you were given a splint or elastic wrap, wear it until your pain improves. Follow-up care Follow up with your healthcare provider, or as advised. Sometimes fractures don t show up on the first X-ray. Bruises and sprains can sometimes hurt as much as a fracture. These injuries can take time to heal completely. If your symptoms don t improve or they get worse, talk with your healthcare provider. You may need a repeat X-ray or other tests. When to seek medical advice Call your healthcare provider right away if any of these occur: Pain or swelling increases Fingers or hand becomes cold, blue, numb, or tingly [phone] [employer] [place] [address]. All rights reserved. This information is not intended as a substitute for professional medical care. Always follow your healthcare professional's instructions. Follow Up Care 07/02/2022 00:36:41 With:DO JOSE ALEJANDRO TAPIA DO Address: [address] [place] [address] [address] [place] [address] When:2-4 days With:JO العرايق DO Address: [address] [place] [phone] When:2-4 days With:[facility] Pt[facility] Refferral [phone] Address:Unknown When:2-4 days [facility] 07-02-2022 Note Discharge Instructions Thank you for allowing [facility] to assist you with your healthcare needs. The following is important discharge information regarding your hospital visit. Diagnosis from Today's Visit Pain in right hand Hand pain-swelling What to Do Next Instructions from Your Care Team No qualifying data available. Post Acute Orders No qualifying data available. You Need to Schedule the Following Appointments Follow Up with DO JOSE ALEJANDRO TAPIA DO When Within 2-4 days Where: [address] [facility] [address] [place] [address] Follow Up with JO العراقي DO When Within 2-4 days Where: [address] [place] [address] [phone] Follow Up with [facility] Pt. Refferral [phone] When Within 2-4 days Allergies NKA Medications Please ask your primary doctor or pharmacist before taking any other medication not listed, including over the counter drugs, herbal medications, vitamins and or supplements as they may interact with your home medications. What How Much When Instructions Last Dose Unchanged omeprazole (omeprazole 20 mg oral delayed release capsule) 1 cap by mouth Once a day Unchanged tamsulosin (tamsulosin 0.4 mg oral capsule) 1 cap by mouth Once a day Please take this list to your next doctor s visit. Bring all medications you take, including over the counter medications, herbals and other supplements with you to your doctor s visit. Patients and families are reminded to discard old lists and to update any records with all medication providers or retail pharmacies. Education Materials Hand Sprain A sprain is a stretching or tearing of the ligaments that hold a joint together. There are no broken bones. Sprains take 3 to 6 weeks, or longer to heal. A sprained hand may be treated with a splint or elastic wrap for support. Home care Keep your arm elevated to reduce pain and swelling. This is most important during the first 48 hours. Apply an ice pack over the injured area for 15 to 20 minutes every 3 to 6 hours. You should do this for the first 24 to 48 hours. You can make an ice pack by filling a plastic bag that seals at the top with ice cubes and then wrapping it with a thin towel. Continue the use of ice packs for relief of pain and swelling as needed. As the ice melts, be careful to avoid getting any wrap or splint wet. After 48 hours, apply heat (warm shower or warm bath) for 15 to 20 minutes several times a day, or alternate ice and heat. You may use msgw-vml-rsxddbx pain medicine to control pain, unless another pain medicine was prescribed. If you have chronic liver or kidney disease or ever had a stomach ulcer or gastrointestinal bleeding, talk with your healthcare provider before using these medicines. If you were given a splint or elastic wrap, wear it until your pain improves. Follow-up care Follow up with your healthcare provider, or as advised. Sometimes fractures don t show up on the first X-ray. Bruises and sprains can sometimes hurt as much as a fracture. These injuries can take time to heal completely. If your symptoms don t improve or they get worse, talk with your healthcare provider. You may need a repeat X-ray or other tests. When to seek medical advice Call your healthcare provider right away if any of these occur: Pain or swelling increases Fingers or hand becomes cold, blue, numb, or tingly [phone] [employer]. [address] [place] [address], [place] [address]. All rights reserved. This information is not intended as a substitute for professional medical care. Always follow your healthcare professional's instructions. Additional Information VACCINATE! IT SAVES LIVES! Members of the community who have not yet received the COVID-19 vaccine and would like to receive it can visit one of [facility] vaccine clinics. There are many vaccine clinic locations within the [facility]. For locations and available times, please visit [email or web address]. It is important to note that some COVID mobile vaccine clinics are held outdoors and may be canceled in rainy or stormy conditions. To learn more about pediatric vaccinations (ages 5-11), we invite you to visit the [facility] webpage. [email or web address] To learn more about the COVID-19 vaccine, we invite you to visit the [facility] website for a list of frequently asked questions. [email or web address] -[email or web address]_[email or web address] [facility] Patient Portal Access Instructions: Stay connected with your healthcare team and access your personal medical information anytime with the [facility] Patient Portal. If you would like a full copy of your medical records please contact the [facility] Medical Records Department Thursday through Thursday between 8a.m. and 4:30p.m. Please follow the directions below to access the portal: 1.Access the email account you provided upon registration to the [facility].2.Look for an invitation email from [facility].3.Open the email and access the invitation link: Accept Invitation to [facility]4.Fill in the required young to create your account. Sign into [email or web address] with your username and password that you created in the above steps to stay up to date. You can then view a summary of results, a summary of your visits, and the ability to download your summaries to your computer or send the information securely to a physician. Remember that your healthcare information is confidential, so carefully consider who you will allow to register on the [facility] Patient Portal for access to your information. You can also access the [facility] Patient Portal on the [employer] stefania. Simply click on Health Records under Health Data and then click on the [facility] logo. HOW TO SAFELY DISPOSE OF PRESCRIPTION MEDICATIONS Please use one of the following methods to safely dispose of your unused medications. 1.Use a drug disposal kit: the drug disposal pouch allows you to safely discard your old and unused drugs. Ask your nurse to give you one when you are discharged.2.Visit a local take-back location: Many local pharmacies and police departments have programs that collect old and unwanted prescription drugs. Call your local pharmacy or go to http://bit.ly/7N8Oe1e to find one close to you.3.Make use of household items: Use cat litter or old coffee grounds to dispose medications if other options are not available. Mix your drugs with these household products, seal them in an airtight container and throw it into the garbage. Call [facility]: [phone] to be sure your drugs can be disposed of in this way. Some medicines may require a different approach.4.Never flush your medications down the toilet. IF YOU HAVE BEEN PRESCRIBED AN OPIOIDS FOR PAIN If you have been prescribed an opioid (such as hydrocodone, oxycodone or morphine), it is critical to understand the possible side effects and risks of opioid pain medications. Even when taken as directed, opioids can have several side effects including: Tolerance, meaning you might need to take more of a medication for the same pain relief. Nausea, vomiting and/or constipation. Sleepiness, dizziness, dry mouth, confusion, depression or itching. Physical dependence, meaning you have withdrawal symptoms when a medication is stopped ? this can develop within a few days. KNOW YOUR RESPONSIBILITIES It is important to know exactly how much and how often to take the opioid pain medications you are prescribed. Never take opioids in higher amounts or more often than prescribed. Do not combine opioids with alcohol or other drugs that cause drowsiness, such as benzodiazepines, also known as benzos, including diazepam and alprazolam, muscle relaxants or sleep aids. Never sell or share prescription opioids. This is illegal. Store opioids in a secure place and out of reach of others (including children, family, friends and visitors). The last page(s) of this document has been signed and retained as a CHART COPY Signatures Patient Education Materials Hand Sprain Medication Leaflets My discharge plan and instructions have been reviewed and explained to me and I,KEEGAN TALIB M understand my current condition and have read and understand these discharge instructions. I have received a written copy of the plan/instructions. If I have questions, I am aware that I should contact my doctor. 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 Subjective Talib Brown is a 52 year old male. He had covid 19 in February, treated with Paxlovid. He continued with cough and was prescribed a Zpak, also at [facility]. He was better but still felt vague chest congestion. He wanted to quit smoking. He wanted to control his anxiety and depression. He wanted to lose weight and pay more attention to his health. Review of Systems Constitutional: Positive for fatigue. Negative for appetite change, chills and fever. HENT: Positive for postnasal drip. Eyes: Negative. Respiratory: Positive for cough. Negative for choking, chest tightness, shortness of breath and wheezing. Cardiovascular: Negative. Gastrointestinal: Negative. Psychiatric/Behavioral: Positive for dysphoric mood. The patient is nervous/anxious. ACTIVE PROBLEM LIST Ganglion Cyst of Finger of Left Hand Benign Prostatic Hyperplasia With Nocturia Generalized Anxiety Disorder History of Substance Use Disorder Gerd (Gastroesophageal Reflux Disease) Depressive Disorder Personal History of Alcoholism ([facility]) Tobacco Use Obesity, Class I, Bmi 30-34.9 Chronic Left-Sided Low Back Pain Without Sciatica Prediabetes Carpal Tunnel Syndrome of Right Wrist Primary Osteoarthritis of First Carpometacarpal Joint of Right Hand Ulnar Neuropathy of Right Upper Extremity Social History Tobacco Use Smoking status: Current Every Day Smoker Packs/day: 1.00 Years: 25.00 Pack years: 25.00 Types: Cigarettes Start date: 11/21/1991 Smokeless tobacco: Never Used Vaping Use Vaping Use: Never used Substance Use Topics Alcohol use: Not Currently Comment: none for 6 months, recovering. Drug use: Not Currently Types: Marijuana, Cocaine, Benzodiazepines Comment: Cocaine used 2016, Suboxone used 06/2018 not prescribed, has used benzos not prescribed to him Current Outpatient Medications Medication Sig buPROPion SR (WELLBUTRIN SR) 150 mg 12 hr tablet Take 1 tablet by mouth twice daily. omeprazole (PRILOSEC) 20 mg capsule Take 1 capsule by mouth daily before breakfast. 1/2 hr before meal. tamsulosin (FLOMAX) 0.4 mg Take 1 capsule by mouth twice daily. therapeutic multivitamin (THERA VITAMIN) tablet Take 1 tablet by mouth once daily. No current facility-administered medications for this visit. Objective BP 114/64 (BP Site: Left Arm, BP Position: Sitting, BP Cuff Size: Large Adult) Pulse 107 Temp 36.3 C (97.3 F) Resp 14 Ht 175.3 cm (5' 9 ) Wt 103.4 kg (228 lb) SpO2 99% BMI 33.67 kg/m Physical Exam Constitutional: General: He is not in acute distress. HENT: Nose: Nose normal. Eyes: Conjunctiva/sclera: Conjunctivae normal. Cardiovascular: Rate and Rhythm: Normal rate and regular rhythm. Heart sounds: No murmur heard. No gallop. Pulmonary: Effort: No respiratory distress. Breath sounds: Rhonchi present. No wheezing or rales. Abdominal: Palpations: Abdomen is soft. Tenderness: There is no abdominal tenderness. Musculoskeletal: Right lower leg: No edema. Left lower leg: No edema. Neurological: Mental Status: He is alert. Gait: Gait normal. Psychiatric: Attention and Perception: Attention normal. Mood and Affect: Mood is anxious. Speech: Speech is rapid and pressured. Behavior: Behavior normal. Thought Content: Thought content normal. Assessment and Plan 1. Cough, unspecified type - ICD9: 786.2, ICD10: R05.9 (primary diagnosis) Ab[facility]. - XR CHEST 2V FRONTAL/LAT 2. Tobacco use - ICD9: 305.1, ICD10: Z72.0 - Cessation encouraged. - - BUPROPION HCL SR 150 MG TABLET,12 HR SUSTAINED-RELEASE Take one(1) tablet two(2) times daily. Discussed medication dosage, usage, goals of therapy, and side effects. 3. Depressive disorder - ICD9: 311, ICD10: F32.A - CBC - COMP METABOLIC PANEL - BUPROPION HCL SR 150 MG TABLET,12 HR SUSTAINED-RELEASE - BUPROPION HCL SR 150 MG TABLET,12 HR SUSTAINED-RELEASE 4. Generalized anxiety disorder - ICD9: 300.02, ICD10: F41.1 - CBC - COMP METABOLIC PANEL - BUPROPION HCL SR 150 MG TABLET,12 HR SUSTAINED-RELEASE - BUPROPION HCL SR 150 MG TABLET,12 HR SUSTAINED-RELEASE 5. History of COVID-19 - ICD9: V12.09, ICD10: Z86.16 Get booster. Discussed medication dosage, usage, goals of therapy, and side effects. 6. Gastroesophageal reflux disease without esophagitis - ICD9: 530.81, ICD10: K21.9 Controlled. - OMEPRAZOLE 20 MG CAPSULE,DELAYED RELEASE 7. Need for COVID-19 vaccine - ICD9: V04.89, ICD10: Z23 - PFIZER-BIONTECH COVID-19 VACCINE, AGE 12+ YR ([place]) Greg De La O MD documented in this encounter [facility] 04-04-2022 Miscellaneous Notes Pt reports he is feeling better but still has some chest congestion and a productive cough bringing up small amount of thin green/yellow sputum. Pt states he is taking Mucinex. Pt was scheduled with Dr De La O on 04/18 at 1 pm. If he is feeling better, I suggest schedule follow up in 2-3 weeks to give time for infection to resolve. I'll order follow up xray then. Sooner appointment if needed. [facility], tested positive for Covid, did isolated. After testing negative last , 03/27/2022. [facility] to [facility] 03/30/2022 d/t ongoing cough, shortness of breath. X-ray done, given/started Azithromycin 03/30/2022, will complete 04/03/2022, reports no fever, cough lingers, c/o fatigue, anxiety. Advised to follow-up w/PCP d/t x-ray showing spot on lung. Printed reports on Dr. De La O's desk for review. Advised Patient needs to finish ATB, good comfort care. If he develops fever, s/s worsen, call office for further instructions. Doctor is out of the office this afternoon, will return tomorrow. Comfortable waiting until Doctor returns to office. Rachel Bangura LPN documented in this encounter [facility] 03-12-2022 Miscellaneous Notes Pt calling in checking refill status. He is in need of medication below. He states you do not want me to come into the office right now. Tested positive for COVID Thursday. Home test done and [facility]. Sherri Medina LPN Spoke to Patient he has missed doses. Scheduled medication follow-up, Patient No Showed last appt. Patient has been identified by name and date of : Yes Patient phones for refill(s): Pending Prescriptions Disp Refills TAMSULOSIN 0.4 MG CAPSULE 60 capsule 0 Sig: Take 1 capsule by mouth twice daily. DESTINY: No Date of last office visit in primary care: 02/25/2021 Medication follow-up: 03/17/2022 Last 2 Encounter Wt Readings: Date: Wt: 02/25/2021 101.6 kg (224 lb) 09/26/2020 95.7 kg (211 lb) Previous labs/tests for medication: Not applicable Please advise. Thank you. Rachel Bangura LPN Patient has been identified by name and date of : Yes Pending Prescriptions Disp Refills TAMSULOSIN 0.4 MG CAPSULE 60 capsule 5 Sig: Take 1 capsule by mouth twice daily. DESTINY: No RX INSTRUCTIONS: Patient aware RX will be sent to pharmacy. No need to notify patient. Any Medina Pss documented in this encounter [facility] 11-28-2021 History of Presen t illness Narrative Pt and family verbalized understanding of recovery instructions, pt verbalized a readiness to be discharged home. Pt discharged home via wheelchair accompanied by RN/volunteer. Pt has had all their belongings returned to them at discharge Pt received from OR via cart, spont. Resp. With BOOKIE in attendance. Placed on monitor. Monitor alarms on in PACU documented in this encounter [facility] Work Phone: 11-28-2021 [facility] DischTheodore Ni MD - 11/28/2021 OK to move fingers and last joint of thumb within restrictions of splint Arm to remain in sling (no movement of elbow) at all times except when bathing. OK to remove sling to shower but must keep thumb bandage clean, and dry Ice and elevate for pain control Percocet for pain - Transition to Tylenol and Ibuprofen when able Call office with questions or concerns documented in this encounter [facility] Work Phone: 01-21-2021 Note HNO ID: [id number] Author: Dulce Mayo OT/Rufino Service: ? Author Type: Occupational Therapist Type: Progress Notes Filed: 01/21/2021 12:18 PM Note Text: 01/21/2021 [facility] OCCUPATIONAL THERAPY DISCONTINUANCE OF CARE Plan of Care Period: Start of Care Date: 11/13/20 Last Visit Date: 11/13/2020 Therapy Program: Patient did not return for follow up care as planned. Please refer to last visit note for interventions provided for this episode of care. Assessment: Unable to formally assess goal achievement. Reason for Discontinuation of Care: Patient has not returned to therapy or scheduled additional follow-up appointments. Dulce Mayo OT/Rufino [facility] 12-11-2020 Note HNO ID: [id number] Author: Dulce Mayo Service: ? Author Type: Occupational Therapist Type: Progress Notes Filed: 12/11/2020 3:10 PM Note Text: The patient did not show up for this appointment. Dulce Mayo OT/Rufino [facility] 11-27-2020 Note HNO ID: [id number] Author: Dulce Mayo Service: ? Author Type: Occupational Therapist Type: Progress Notes Filed: 11/27/2020 3:06 PM Note Text: The patient did not show up for this appointment. Dulce Mayo OT/Rufino [facility] 11-13-2020 Note HNO ID: [id number] Author: Dulce Mayo Service: ? Author Type: Occupational Therapist Type: Progress Notes Filed: 11/13/2020 4:08 PM Note Text: Episode Visit Count: 1 Therapist That Will Oversee The Plan Of Care: Gael Cardona Start of Care Date: 11/13/20 Onset Date: 10/19/20 Plan of Care Certification Date: 11/13/20 Next Certification Due Date: 02/10/21 Patient Identified by Name and Date of : Yes [facility] SPORTS THERAPY OCCUPATIONAL THERAPY EVALUATION PLAN OF CARE: Assessment: Talib Brown presents with the diagnosis of s/p CMC arthroplasty CTR ulnar nerve decompression. He presents with impairments of ROM edema and scar. He may benefit from skilled occupational therapy services to improve function. Prognosis: Good Good due to: current objective clinical presentation Goals for Episode of Care created on 11/13/20 through 02/10/21 Patient will report a good understanding of diagnosis and OT recommendations for progression of program. Patient will demonstrate independence with ongoing home recommendations/exercise program throughout therapy plan of care. Patient will increase AROM of Left wrist and thumb to WFL in order to be able to improve function for basic self-care tasks and light functional tasks. Patient will independently demonstrate correct application of CUSTOM orthosis and verbalize understanding of proper wear/care. Patient will report a good understanding of edema control, scar / wound management throughout therapy plan of care to promote non-adherent / non-tender soft tissue. Patient will report a good understanding of the use of pain reducing modalities to help manage discomfort and promote healing. Patient Goals: r handed unemployeed lives with family Planned Interventions, Frequency, and Duration: Current Frequency: 1x every other week Duration: 8 weeks Total Number of Visits Planned: 4 Planned Treatment Interventions: Custom orthosis fabrication;Prefabricated orthosis fitting;Therapeutic exercise (37008);Manual therapy (25428);Self-jail management (26314);Fluidotherapy (96539) PLAN FOR NEXT VISIT: trial fluido progress scar management soft sponge tendon gliding and isolated blocking Patient demonstrates good understanding of plan of care and treatment. The above goals and plan of care were discussed and agreed upon by patient/family. SUBJECTIVE: Talib Brown is a 50 year old male seen today for Functional Limitations: grooming;gripping;pinching Prior Level of Function: Independent without limitations Patient Goals: r handed unemployeed lives with family Pain: Pain Pain Level: 7 Pain Location: Arm - Left Description: Aching;Sore Frequency: Continuous Post Treatment Pain Post Treatment Pain Level: 3 Post Treatment Pain Location: Arm - Left Post Treatment Pain Description: Aching;Sore PROMIS Scales Higher is Better 02/15/2020 GH Physical - Score 42.3 GH Physical - Percentile 22 % GH Mental - Score 41.1 GH Mental - Percentile 19 % T-scores: mean of general population = 50. 5 points is clinically meaningfully difference Percentiles provide an indication of how the patient's score ranks in relation to the general population. Higher percentile rankings indicate better function/quality of life. 50th percentile is the average of the general population and indicates half of respondents had a worse score. T-scores: mean of general population = 50. 5 points is clinically meaningfully difference Percentiles provide an indication of how the patient's score ranks in relation to the general population. Higher percentile rankings indicate better function/quality of life. 50th percentile is the average of the general population and indicates half of respondents had a worse score. OBJECTIVE MEASURES WITH LEVEL OF FUNCTION: Hand Skin / Wound: Scar Scar: Tender;Mild adherance Edema Location: left arm Edema Description: Moderate Edema Measurements: Wrist (DWC) (cm);Elbow;Digits R Elbow crease (cm): 27.5 L Elbow crease (cm): 27.7 R Wrist (DWC) (cm): 16.8 L Wrist (DWC) (cm): 17.5 Edema - Digits: Thumb R Thumb P1 (cm): 7 cm L Thumb P1 (cm): 7.6 cm Elbow AROM: Left Limitation Wrist AROM: Left Limitation Right Hand AROM: WFL Thumb AROM: Left Limitation Sensation: Reports tingling or numbness;[place]-Angela L Thumb: 4.31-diminished protective sensation L Index Finger: 4.31-diminished protective sensation L Middle Finger: 4.31-diminished protective sensation L Radial Ring Finger: 4.31-diminished protective sensation L Ulnar Ring Finger: 4.31-diminished protective sensation L Little Finger: 4.31-diminished protective sensation UE AROM Right Hand AROM: WFL L Elbow Extension: 0 L Elbow Flexion: 140 Degrees L Forearm Supination: 85 Degrees L Forearm Pronation: 85 Degrees L Wrist Extension: 60 Degrees L Wrist Flexion: 60 Degrees L Wrist Radial Dev (more content not included)... [facility] 11-13-2020 Note HNO ID: [id number] Author: Kamilla (RtGuzman David Service: Radiology Author Type: Lead Assistant Manager Type: Progress Notes Filed: 11/13/2020 1:14 PM Note Text: Radiology Service Progress Note PATIENT NAME: Talib Brown DATE OF SERVICE: November 13, 2020 TIME: 1:13 PM PATIENT IDENTITY VERIFICATION COMPLETED USING TWO (2) IDENTIFIERS: Name and Date of confirmed by patient verbally. FALL SCREENING: Has the patient had 2 falls in the last year or 1 fall with injury or currently using an Ambulatory Assistive Device (Walker, Cane, Wheelchair, Crutches, etc.)? No PATIENT GENDER DATA: Male PATIENT RELEVANT IMPLANT DATA REVIEWED: Not Applicable RADIOLOGY DEPARTMENT: General X-ray: Exam(s) Completed: Upper Extremity X-Ray(s): Hand, left : PERIPHERAL IV DATA: Not applicable SIGNED BY: RT Maged November 13, 2020 1:13 PM [facility] 10-19-2020 Note HNO ID: [id number] Author: Jose Alejandro Jay Service: ? Author Type: Nurse Medical Receptionist Type: Anesthesia Procedure Notes Filed: 10/19/2020 8:08 AM Note Text: ANESTHESIOLOGY PROCEDURE NOTE Airway General Information Procedure Start Time/Medication Administration: 10/19/2020 7:47 AM Procedure End Time: 10/19/2020 7:49 AM Patient location during procedure: OR Timeout Performed Pre-procedure: emergent Consent Obtained: No (Unable to ventilate pt. 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 Anesthesiologist: Princess Rhodes BOOKIE: Jose Alejandro Jay Performed by: SERENITY Indications and Patient Condition Preoxygenated: no Patient position: sniffing Manual In-Line Stabilization: No Difficult Mask: No Indications for airway management: anesthesia and airway protection Method: asleep Cricoid Pressure: No Final Airway Details Final airway type: endotracheal airway Final Endotracheal Airway: ETT Cuffed: yes Successful intubation technique: direct laryngoscopy Endotracheal tube insertion site: oral Blade: Angel Blade size: #4 ETT size (mm): 7.5 Measured from: lips Measurement (cm): 22 Placement verified by: chest auscultation Cormack-Lehane Classification: grade I - full view of glottis Number of attempts at approach: 1 Failed airway: no Unrecognized esophageal intubation: no Airway not difficult SIGNATURE: Jose Alejandro Jay PATIENT NAME: Talib Brown DATE: October 19, 2020 TIME: 8:01 AM CSN: [id number] [facility] 10-19-2020 Note HNO ID: [id number] Author: Princess Rhodes Service: ? Author Type: Anesthesiologist Type: Anesthesia Procedure Notes Filed: 10/19/2020 7:26 AM Note Text: ANESTHESIOLOGY PROCEDURE NOTE Peripheral Nerve Block General Information Procedure Start Time/Medication Administration: 10/19/2020 7:19 AM Procedure End time: 10/19/2020 7:23 AM Patient location during procedure: induction room Timeout Performed Pre-procedure: timeout performed Consent Obtained: Yes Patient identity confirmed: arm band and patient Reason for block: post-op pain management/at surgeon's request Staffing Anesthesiologist: Princess Rhodes Preparation Sterility Preparation: hand hygiene performed prior to procedure, surgical cap used, mask used, sterile drape used during line insertion, skin prep agent completely dried prior to procedure Site Prep: Chloraprep Pre-Procedure Neuro Exam Location: LUE Sensory: intact Motor: intact Procedure Details Patient Position: sitting Monitoring: Pulse OX, EKG and NIBP Block Type Approach: supraclavicular Laterality: left Injection Technique: single-shot Ultrasound Guided: Yes Image in Chart: yes Local Infiltration: Yes Needle Needle Type: echogenic Needle Gauge: 22 G Needle Localization: ultrasound Assessment Injection assessment: negative aspiration and local visualized surrounding nerve on ultrasound Medications Administered Dexamethasone sodium phosphate injection (DECADRON), 4 mg ropivacaine (PF) 5 mg/mL (0.5 %) injection (NAROPIN), 20 mL SIGNATURE: Princess Rhodes MD PATIENT NAME: Talib Brown DATE: October 19, 2020 TIME: 7:26 AM CSN: [id number] [facility] Evaluation + Plan note No data available for this section [facility] documented in this encounter [facility] Work Phone: Evaluation note* Diagnosis Benign prostatic hyperplasia with nocturia documented in this encounter [facility] note* Diagnosis Cough, unspecified type- Primary Tobacco use Tobacco use disorder Depressive disorder Depressive disorder, not elsewhere classified Generalized anxiety disorder History of COVID-19 Gastroesophageal reflux disease without esophagitis Esophageal reflux Need for COVID-19 vaccine documented in this encounter [facility] note* Diagnosis Screening for colon cancer Special screening for malignant neoplasms, colon documented in this encounter [facility] note* Diagnosis Narcotic overdose, accidental or unintentional, initial encounter [facility] Primary documented in this encounter [employer] Phone: Hospital Discharge instructions* Attachments The following attachments cannot be sent through Care Everywhere. * Substance Use Disorder (Guinean) * Drug Overdose: Opioid ([place]) [facility]: reason for referral (narrative)* Outpatient Procedure (Routine) - Pending Review Specialty Diagnoses / Procedures Referred By Loc nunez Referred To Contact [facility] Diagnoses Screening for colon cancer Procedures COLONOSCOPY SCREENING COLONOSCOPY FLX DX W/COLLJ SPEC WHEN Greg Anthony MD [address] [place] [address] [facility] [place] [address] Referral ID Status Reason Start Date Expiration Date Visits Requested Visits Authorized [id number] Pending Review Auto-Generat ed Referral 07/30/2022 07/30/2023 1 1 [facility] Summary Purpose Family History No Family History Records FoundNo Family History Records FoundNo Family History Records FoundNo Family History Records FoundNo Family History Records Found Advance Directives No Advanced Directives Records FoundLatest Code Status on File Code Status Date Activated Date Inactivated Comments Full Code 11/28/2021 1:37 PM Latest Code Status on File Code Status Date Activated Date Inactivated Comments Full Code 11/28/2021 1:37 PM 11/28/2021 9:24 PM Documents on File Type Date 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 Advance Directive(s) 10/19/2020 7:05 AM Advance Directive(s) 11/10/2018 1:17 PM Additional Source Comments (unrecognized sect ion and content) No Status Records FoundNo Status Records FoundNo Status Records FoundNo Status Records FoundNo Status Records Found INFORMATION SOURCE (unrecogn ized section and content) DATE CREATED AUTHOR AUTHOR'S ORGANIZ ATION 02/23/2021 [facility] DATE CREATED AUTHOR AUTHOR'S ORGANIZ ATION 11/27/2022 [facility] ([place] DATE CREATED AUTHOR AUTHOR'S ORGANIZ ATION 11/30/2022 [facility] DATE CREATED AUTHOR AUTHOR'S ORGANIZ ATION 06/04/2023 [facility] Ordered Prescriptions (unrec ognized section and content) Prescription Sig Dispensed Refills Start Date End Da te ketorolac (TORADOL) 10 MG tablet Take 1 tablet by mouth every 6 hours as needed for Pain 20 tablet 0 11/24/2022 Scheduled Active and Recently Administ ered Medications (unrecognized section and content) Continuous Medication Order 11/26/2021 11/27/2021 11/28/2021 lactated ringers infusion IntraVENous, at 50 mL/hr, CONTINUOUS, Starting on Mary Kay 11/28/21 at 1400, Upon admission to sameday - please start iv if patient does not have iv access. Use 500ml NS for patients on dialysis., Pre-op (day of surgery) 1400 (Due) PRN Medication Order 11/26/2021 11/27/2021 11/28/2021 0.9 % sodium chloride infusion 25 mL, IntraVENous, at 100 mL/hr, PRN, If patient receiving piggyback infusions without ordered maintenance IV fluids or with frequent/long duration piggyback infusions, Starting on Mary Kay 11/28/21 at 1337, Administer at the same rate as the piggyback being infused., Pre-op (day of surgery) 0.9 % sodium chloride infusion 25 mL, IntraVENous, at 100 mL/hr, PRN, If patient receiving piggyback infusions without ordered maintenance IV fluids or with frequent/long duration piggyback infusions, Starting on Mary Kay 11/28/21 at 1442, Administer at the same rate as the piggyback being infused., PACU only diphenhydrAMINE (BENADRYL) injection 12.5 mg 12.5 mg, IntraVENous, ONCE PRN, Itching, Starting on Mary Kay 11/28/21 at 1442, For 1 dose, PACU only hydrALAZINE (APRESOLINE) injection 10 mg(Linked Group 1) 10 mg, IntraVENous, EVERY 15 MIN PRN, High Blood Pressure, for SBP greater than 180 mmHg for 2 consecutive measurements taken from different sites, Starting on Mary Kay 11/28/21 at 1442, For 2 doses, If heart rate is greater than 60 bpm, hold hydralazine and use labetalol if ordered, otherwise contact provider. Inform provider if SBP is still greater than 180 mmHg 10 minutes after second antihypertensive dose is administered., PACU only labetalol (NORMODYNE;TRANDATE) injection 10 mg(Linked Group 1) 10 mg, IntraVENous, EVERY 15 MIN PRN, High Blood Pressure, for SBP greater than 180 mmHg for 2 consecutive measurements taken from different sites., Starting on Mary Kay 11/28/21 at 1442, For 2 doses, If heart rate is 60 bpm or less hold labetalol and use hydralazine if ordered, otherwise contact provider. Inform provider if SBP is still greater than 180 mmHg, 10 minutes after second antihypertensive dose is administered., PACU only lidocaine PF 1 % injection 1 mL 1 mL, IntraDERmal, ONCE PRN, IV start, Starting on Mary Kay 11/28/21 at 1337, For 1 dose, Pre-op (day of surgery) ondansetron (ZOFRAN) injection 4 mg 4 mg, IntraVENous, ONCE PRN, Nausea, Starting on Mary Kay 11/28/21 at 1442, For 1 dose, Initial antiemetic therapy., PACU only oxyCODONE (ROXICODONE) immediate release tablet 10 mg(Linked Group 2) 10 mg, Oral, EVERY 3 HOURS PRN, Pain Severe (7-10), Starting on Mary Kay 11/28/21 at 1442 1842 (See Alternativ e - Provider: Krissy Vazquez RN) oxyCODONE (ROXICODONE) immediate release tablet 5 mg(Linked Group 2) 5 mg, Oral, EVERY 3 HOURS PRN, Pain Moderate (4-6), Starting on Mary Kay 11/28/21 at 1442 1842 (Given - Provid er: Krissy Vazquez RN) sodium chloride flush 0.9 % injection 5-40 mL 5-40 mL, IntraVENous, PRN, Line Care, Starting on Mary Kay 11/28/21 at 1337, For Line Patency: Peripheral IV = 5 mL; Midline or Central Line = 10 mL/lumen. If following IV push medication, administer flush at same rate as the IV push. Flush volume is determined by type of infusion therapy being given. For non-viscous solutions use: Peripheral IV = 5 mL Midline or Central Line = 10 mL/lumen For viscous solutions (i.e. blood components, parenteral nutrition, contrast media, or after obtaining blood sample) use: Peripheral IV = 10 mL Midline or Central Line = 20 mL/lumen, Pre-op (day of surgery) sodium chloride flush 0.9 % injection 5-40 mL 5-40 mL, IntraVENous, PRN, Line Care, After every IV line use, Starting on Mary Kay 11/28/21 at 1442, For Line Patency: Peripheral IV = 5 mL; Midline or Central Line = 10 mL/lumen. If following IV push medication, administer flush at same rate as the IV push. Flush volume is determined by type of infusion therapy being given. For non-viscous solutions use: Peripheral IV = 5 mL Midline or Central Line = 10 mL/lumen For viscous solutions (i.e. blood components, parenteral nutrition, contrast media, or after obtaining blood sample) use: Peripheral IV = 10 mL Midline or Central Line = 20 mL/lumen, PACU only Linked Groups Order Group 1: labetalol (NORMODYNE;TRANDATE) injection 10 mgJump to med 10 mg, IntraVENous, EVERY 15 MIN PRN, High Blood Pressure, for SBP greater than 180 mmHg for 2 consecutive measurements taken from different sites., Starting on Mary Kay 11/28/21 at 1442, For 2 doses
If heart rate is 60 bpm or less hold labetalol and use hydralazine if ordered, otherwise contact provider. Inform provider if SBP is still greater than 180 mmHg, 10 minutes after second antihypertensive dose is administered.
PACU only Or hydrALAZINE (APRESOLINE) injection 10 mgJump to med 10 mg, IntraVENous, EVERY 15 MIN PRN, High Blood Pressure, for SBP greater than 180 mmHg for 2 consecutive measurements taken from different sites, Starting on Mary Kay 11/28/21 at 1442, For 2 doses
If heart rate is greater than 60 bpm, hold hydralazine and use labetalol if ordered, otherwise contact provider. Inform provider if SBP is still greater than 180 mmHg 10 minutes after second antihypertensive dose is administered.
PACU only Group 2: oxyCODONE (ROXICODONE) immediate release tablet 5 mgJump to med 5 mg, Oral, EVERY 3 HOURS PRN, Pain Moderate (4-6), Starting on Mary Kay 11/28/21 at 1442 Or oxyCODONE (ROXICODONE) immediate release tablet 10 mgJump to med 10 mg, Oral, EVERY 3 HOURS PRN, Pain Severe (7-10), Starting on Mary Kay 11/28/21 at 1442 Scheduled Medication Order 11/23/2022 11/24/2022 11/25/2022 0.9 % sodium chloride bolus (COMPLETED) 1,000 mL (10 mL/kg), IntraVENous, at 983.6 mL/hr, Administer over 61 Minutes, ONCE, On Thu11/24/22 at 2207, For 1 dose 2217 (New Bag - Provider: Keanu Sousa RN)2320 (Stopped - Provider: Sabine Israel, RN) cefTRIAXone (ROCEPHIN) 1,000 mg in sodium chloride 0.9 % 50 mL IVPB (mini-bag) (COMPLETED) 1,000 mg, IntraVENous, ONCE, 1 dose, On Thu11/24/22 at 2231, Antimicrobial Indications: Skin and Soft Tissue Infection 223 (New Bag - Provider: Keanu Sousa RN)232 (Stopped - Provider: Sabine Israel, KEARA) ketorolac (TORADOL) injection 30 mg (COMPLETED) 30 mg, IntraVENous, ONCE, 1 dose, On Thu11/24/22 at 2208, Do not administer for more than 5 days. 2218 (Given - Provider: Mk Sousa RN) Care Teams (unrecognized sec tion and content) Clay Pigeon Setter Relationship Specialty Start Date End Date Greg De La O [address] [facility] [place] [address] PCP - General Internal Medicine 11/27/21 Clay Pigeon Setter Relationship Specialty Start Date End Date Greg De La O [address] [place] [address] PCP - General Internal Medicine 11/27/21 Clay Pigeon Setter Relationship Specialty Start Date End Date Greg De La O MD [address] [place] [address] PCP - General Internal Medicine 10/13/18 Clay Pigeon Setter Relationship Specialty Start Date End Date Greg De La O MD [address] [place] [address] PCP - General Internal Medicine 10/13/18 Clay Pigeon Setter Relationship Specialty Start Date End Date Greg De La O MD [address] [place] [address] PCP - General Internal Medicine 10/13/18 Clay Pigeon Setter Relationship Specialty Start [place] [address] [place] [id number] PCP - General Internal Medicine 10/13/18 Clay Pigeon Setter Relationship Specialty Start Date End Date Greg De La O MD [address] [place] [address] PCP - General Internal Medicine 10/13/18 Source Comments (unrecognize d section and content) In the event this informatio n is protected by the Federal Confidentiality of Alcohol and Drug Abuse Patient Records regulations: The Federal rules restrict any use of the information to criminally investigate or prosecute any alcohol or drug abuse patient.[facility] the event this information is protected by the Federal Confidentiality of Alcohol and Drug Abuse Patient Records regulations: The Federal rules restrict any use of the information to criminally investigate or prosecute any alcohol or drug abuse patient.[facility] the event this information is protected by the Federal Confidentiality of Alcohol and Drug Abuse Patient Records regulations: The Federal rules restrict any use of the information to criminally investigate or prosecute any alcohol or drug abuse patient.[facility] the event this information is protected by the Federal Confidentiality of Alcohol and Drug Abuse Patient Records regulations: The Federal rules restrict any use of the information to criminally investigate or prosecute any alcohol or drug abuse patient.[facility] the event this information is protected by the Federal Confidentiality of Alcohol and Drug Abuse Patient Records regulations: The Federal rules restrict any use of the information to criminally investigate or prosecute any alcohol or drug abuse patient.[facility] Reason for Visit (unrecogniz ed section and content) Reason Comments Patient Update Reason Comments Established Patient urgent care follow u p- post covid Reason Comments Drug Overdose Reason Comments Appointment Care Team (unrecognized sect ion and content) Care Team Personnel Name: PHYSICIAN, NONE Position: Physician Member Role: Primary Care Physician Care Team Related Persons Name: ASHU HODGE Care Team Personnel Name: PHYSICIAN, NONE Position: Physician Member Role: Primary Care Physician Care Team Related Persons Name: ASHU HODGE Care Team Personnel Name: PHYSICIAN, NONE Position: Physician Member Role: Primary Care Physician Care Team Related Persons Name: ASHU HODGE FOR RECORDS PERTAINING TO PATIENTS WHO ARE OR HAVE BEEN ENROLLED IN A CHEMICAL DEPENDENCY/SUBSTANCEABUSE PROGRAM, SOME INFORMATION MAY BE OMITTED. This clinical summary was aggregated from multiple sources. Caution should be exercised in using it in the provision of clinical care. This summary normalizes information from multiple sources, and as a consequence, information in this document may materially change the coding, format and clinical context of patient data. In addition, data may be omitted in some cases. CLINICAL DECISIONS SHOULD BE BASED ON THE PRIMARY CLINICAL RECORDS. [facility] ST[facility]FACE [facility]. provides no warranty or guarantee of the accuracy or completeness of information in this document.
[2023-10-20 13:35] LABS: Absolute Lymphocyte Count 1.99 X10^3/uL (0.83-4.51); Absolute Neutrophil Count 3.7 X10^3/uL (2.0-7.7); Basophil# 0.07 X10^3/uL; Eosinophil# 0.38 X10^3/uL; Eosinophils% 5.5 % (0-5); Hematocrit 41.9 % (40-54); Hemoglobin 13.6 g/dL (13.0-16.5); Lymphocyte # 1.99 X10^3/ul (0.83-4.51); Mean Corp Hgb Conc 32.5 g/dL (32-36); Mean Corpuscular Hgb 29.5 pg (27.0-32.0); Mean Corpuscular Volume 90.9 fL (80-94); Mean Platelet Vol. 10.5 fl (6.2-12.0); Monocyte# 0.71 X10^3/uL; Monocyte% 10.3 % (0-10); NRBC Flagged by Analyzer 0 % (0-5); Neutrophil % 53.9 % (47-70); Platelet Count 254 K/mm3 (150-450); RBC Distribution Width CV 13.6 % (11.6-14.6); RBC Distribution Width SD 45.5 fl (35.1-43.9); Red Blood Count 4.61 M/mm3 (4.6-6.2); White Blood Count 6.9 K/mm3 (4.4-11.0)
[2023-10-20 13:56] LABS: ALB/GLOB Ratio 1.1 RATIO (0.9-2.4); AST(SGOT) 16 U/L (15-37); Alanine Aminotransfer ALT/SGPT 25 U/L (16-61); Albumin, Serum 3.5 g/dL (3.2-5.0); Alkaline Phosphatase 45 U/L (45-117); Anion Gap 5 (5-15); BUN 14 mg/dL (7-18); BUN/Creat Ratio 15.2 RATIO (10-20); Calcium,Total 8.8 mg/dL (8.5-10.1); Chloride 109 mmol/L (98-107); Cholesterol 181 mg/dL (200); Creatinine, Serum 0.92 mg/dL (0.70-1.30); EST Glomerular Filtration Rate 92 mL/min (>60); Est Glom Filt Rate - Afr Amer 111 mL/min (>60); Globulin 3.2 g/dL (2.2-4.2); Glucose 120 mg/dL (74-106); High Density Lipoprotein 46 mg/dL; Potassium 4.4 mmol/L (3.5-5.1); Protein, Total 6.7 g/dL (6.4-8.2); Sodium Level 140 mmol/L (136-145); Thyroid Stim Hormone (TSH) 0.95 uIU/mL (0.358-3.74); Triglycerides 113 mg/dL; Very Low Density Lipoprotein 23 mg/dL (5-40)
== END | disposition home or self-care (01) ==
LOC: POLAB3 11:37
PROVIDERS: PCP Family Medicine Geriatric Medicine; Visit Provider Family Medicine Geriatric Medicine
DX: R53.83 Other fatigue (principal); E78.5 Hyperlipidemia, unspecified
CPT/HCPCS: 36415; 80053; 80061; 84443; 85025

== ENCOUNTER → 2024-02-29 | Outpatient (CLI) | payer MEDICAID, SELFPAY ==
[2024-02-29 17:11] LABS: Absolute Lymphocyte Count 3.46 X10^3/uL (0.83-4.51); Absolute Neutrophil Count 5.5 X10^3/uL (2.0-7.7); Eosinophil# 0.32 X10^3/uL; Eosinophils% 3.1 % (0-5); Hemoglobin 14.1 g/dL (13.0-16.5); Lymphocyte # 3.46 X10^3/ul (0.83-4.51); Lymphocyte % 33.5 % (19-41); Mean Corpuscular Hgb 28.5 pg (27.0-32.0); Mean Corpuscular Volume 89.1 fL (80-94); Mean Platelet Vol. 9.2 fl (6.2-12.0); Monocyte% 8.7 % (0-10); NRBC Flagged by Analyzer 0 % (0-5); Neutrophil # 5.52 X10^3/uL (2.7-7.7); Neutrophil % 53.3 % (47-70); Platelet Count 294 K/mm3 (150-450); RBC Distribution Width CV 13.7 % (11.6-14.6); RBC Distribution Width SD 44.6 fl (35.1-43.9); Red Blood Count 4.94 M/mm3 (4.6-6.2); White Blood Count 10.3 K/mm3 (4.4-11.0)
[2024-02-29 17:42] LABS: ALB/GLOB Ratio 1.1 RATIO (0.9-2.4); AST(SGOT) 18 U/L (15-37); Alanine Aminotransfer ALT/SGPT 22 U/L (16-61); Alkaline Phosphatase 50 U/L (45-117); Anion Gap 4 (5-15); BUN 12 mg/dL (7-18); Calcium,Total 9.1 mg/dL (8.5-10.1); Chloride 104 mmol/L (98-107); EST Glomerular Filtration Rate 83 mL/min (>60); Est Glom Filt Rate - Afr Amer 101 mL/min (>60); Globulin 3.6 g/dL (2.2-4.2); Glucose 111 mg/dL (74-106); Protein, Total 7.6 g/dL (6.4-8.2); Sodium Level 138 mmol/L (136-145); Thyroid Stim Hormone (TSH) 2.71 uIU/mL (0.358-3.74)
[2024-02-29 18:25] LABS: Color, Urine Yellow (Yellow); Glucose, Dipstick Normal (Normal); Ketone-Dipstick Negative (Negative); Leukocyte Esterase-Dipstick Negative /ul (Negative); Nitrite-Dipstick Negative (Negative); Occult Blood-Urine Negative /ul (Negative); Protein-Dipstick Negative (Negative); Urine Bilirubin Dipstick Negative (Negative); Urine Clarity Clear (Clear); Urine Urobilinogen Normal (Normal)
[2024-02-29 18:40] LABS: Amphetamine Urine VISTA NEGATIVE (<1000 ng/mL); Barbiturate Urine VISTA NEGATIVE (< 200 ng/mL); Benzodiazepine Urine VISTA NEGATIVE (< 200 ng/mL); Cocaine Urine VISTA NEGATIVE (< 300 ng/mL); Ecstacy Urine VISTA POSITIVE (< 500 ng/mL); Methadone Urine VISTA NEGATIVE (< 300 ng/mL); PCP Urine VISTA NEGATIVE (< 25 ng/mL); THC Urine VISTA POSITIVE (< 50 ng/mL); Vista UDS pH Range 6
== END | disposition home or self-care (01) ==
LOC: LAB 16:26
PROVIDERS: PCP Family Medicine Geriatric Medicine; Referring Provider Family Medicine Geriatric Medicine; Visit Provider Family Medicine Geriatric Medicine
DX: R35.1 Nocturia (principal); R35.89 Other polyuria; R63.1 Polydipsia
CPT/HCPCS: 36415; 80053; 80307; 81002; 84443; 85025

== ENCOUNTER → 2024-04-21 | Outpatient (CLI) | payer MEDICAID, SELFPAY ==
[2024-04-21 15:08] LABS: Absolute Lymphocyte Count 3.11 X10^3/uL (0.83-4.51); Absolute Neutrophil Count 5.1 X10^3/uL (2.0-7.7); Basophil# 0.13 X10^3/uL; Basophil% 1.3 % (0-1); Eosinophil# 0.42 X10^3/uL; Eosinophils% 4.4 % (0-5); Hematocrit 40.9 % (40-54); Hemoglobin 13.4 g/dL (13.0-16.5); Lymphocyte # 3.11 X10^3/ul (0.83-4.51); Lymphocyte % 32.2 % (19-41); Mean Corp Hgb Conc 32.8 g/dL (32-36); Mean Corpuscular Hgb 28.8 pg (27.0-32.0); Mean Platelet Vol. 9.5 fl (6.2-12.0); Monocyte# 0.83 X10^3/uL; Monocyte% 8.6 % (0-10); NRBC Flagged by Analyzer 0 % (0-5); Neutrophil # 5.12 X10^3/uL (2.7-7.7); Neutrophil % 53.1 % (47-70); Platelet Count 269 K/mm3 (150-450); RBC Distribution Width CV 13.5 % (11.6-14.6); RBC Distribution Width SD 43.7 fl (35.1-43.9); Red Blood Count 4.65 M/mm3 (4.6-6.2); White Blood Count 9.7 K/mm3 (4.4-11.0)
[2024-04-21 15:54] LABS: ALB/GLOB Ratio 1.1 RATIO (0.9-2.4); AST(SGOT) 21 U/L (15-37); Alanine Aminotransfer ALT/SGPT 22 U/L (16-61); Alkaline Phosphatase 50 U/L (45-117); Anion Gap 6 (5-15); BUN 18 mg/dL (7-18); BUN/Creat Ratio 17.5 RATIO (10-20); Calcium,Total 8.9 mg/dL (8.5-10.1); Chloride 101 mmol/L (98-107); Cholesterol 216 mg/dL (200); Creatinine, Serum 1.03 mg/dL (0.70-1.30); EST Glomerular Filtration Rate 81 mL/min (>60); Est Glom Filt Rate - Afr Amer 98 mL/min (>60); Globulin 3.5 g/dL (2.2-4.2); Glucose 93 mg/dL (74-106); High Density Lipoprotein 52 mg/dL; Potassium 4.3 mmol/L (3.5-5.1); Protein, Total 7.5 g/dL (6.4-8.2); Sodium Level 136 mmol/L (136-145); Thyroid Stim Hormone (TSH) 2.99 uIU/mL (0.358-3.74); Triglycerides 141 mg/dL; Very Low Density Lipoprotein 28 mg/dL (5-40)
== END | disposition home or self-care (01) ==
LOC: POLAB3 14:20
PROVIDERS: PCP Family Medicine Geriatric Medicine; Visit Provider Family Medicine Geriatric Medicine
DX: R53.83 Other fatigue (principal); E78.5 Hyperlipidemia, unspecified
CPT/HCPCS: 36415; 80053; 80061; 84443; 85025

== ENCOUNTER 2024-05-19 12:02 | Emergency (ER) | payer MEDICAID, SELFPAY ==
[2024-05-19 12:03] VITALS: BP 144/93; PULSE 75; RESP 22; TEMP 35.3; O2SAT 100
== END 2024-05-19 12:23 | disposition left against medical advice (07) ==
LOC: ED 12:33
PROVIDERS: PCP Family Medicine Geriatric Medicine
DX: Z53.21 Procedure and treatment not carried out due to patient leaving prior to being seen by health care provider (principal)

== ENCOUNTER → 2024-10-26 | Outpatient (CLI) | payer MEDICAID, SELFPAY ==
[2024-10-26 16:04] LABS: Absolute Lymphocyte Count 3.42 X10^3/uL (0.83-4.51); Absolute Neutrophil Count 6.5 X10^3/uL (2.0-7.7); Basophil# 0.09 X10^3/uL; Basophil% 0.8 % (0-1); Eosinophil# 0.18 X10^3/uL; Eosinophils% 1.6 % (0-5); Hematocrit 44.3 % (40-54); Hemoglobin 14.5 g/dL (13.0-16.5); Lymphocyte # 3.42 X10^3/ul (0.83-4.51); Lymphocyte % 30.8 % (19-41); Mean Corp Hgb Conc 32.7 g/dL (32-36); Mean Corpuscular Hgb 28.5 pg (27.0-32.0); Mean Platelet Vol. 9.4 fl (6.2-12.0); Monocyte# 0.84 X10^3/uL; Monocyte% 7.6 % (0-10); NRBC Flagged by Analyzer 0 % (0-5); Neutrophil # 6.52 X10^3/uL (2.7-7.7); Neutrophil % 58.8 % (47-70); Platelet Count 291 K/mm3 (150-450); RBC Distribution Width CV 13.3 % (11.6-14.6); RBC Distribution Width SD 42.5 fl (35.1-43.9); Red Blood Count 5.09 M/mm3 (4.6-6.2); White Blood Count 11.1 K/mm3 (4.4-11.0)
[2024-10-26 17:53] LABS: ALB/GLOB Ratio 1.1 RATIO (0.9-2.4); AST(SGOT) 21 U/L (15-37); Alanine Aminotransfer ALT/SGPT 29 U/L (16-61); Albumin, Serum 4.4 g/dL (3.2-5.0); Alkaline Phosphatase 52 U/L (45-117); Anion Gap 8 (5-15); BUN 19 mg/dL (7-18); BUN/Creat Ratio 15.7 RATIO (10-20); Calcium,Total 9.6 mg/dL (8.5-10.1); Chloride 101 mmol/L (98-107); Cholesterol 235 mg/dL (200); Creatinine, Serum 1.21 mg/dL (0.70-1.30); EST Glomerular Filtration Rate 67 mL/min (>60); Est Glom Filt Rate - Afr Amer 81 mL/min (>60); Globulin 3.9 g/dL (2.2-4.2); Glucose 81 mg/dL (74-106); High Density Lipoprotein 52 mg/dL; PSA,Total - Annual Screen 0.12 ng/mL (0.00-4.00); Protein, Total 8.3 g/dL (6.4-8.2); Sodium Level 137 mmol/L (136-145); Triglycerides 160 mg/dL; Very Low Density Lipoprotein 32 mg/dL (5-40)
== END | disposition home or self-care (01) ==
LOC: POLAB3 15:25
PROVIDERS: PCP Family Medicine Geriatric Medicine; Visit Provider Family Medicine Geriatric Medicine
DX: R53.83 Other fatigue (principal); E78.5 Hyperlipidemia, unspecified; Z12.5 Encounter for screening for malignant neoplasm of prostate
CPT/HCPCS: 84153; 36415; 80053; 80061; 84443; 85025; G0103

== ENCOUNTER → 2024-11-17 | Outpatient (CLI) | payer MEDICAID, SELFPAY ==
[2024-11-17 10:09] LABS: Absolute Lymphocyte Count 2.58 X10^3/uL (0.83-4.51); Absolute Neutrophil Count 4.6 X10^3/uL (2.0-7.7); Basophil# 0.08 X10^3/uL; Eosinophil# 0.24 X10^3/uL; Eosinophils% 2.9 % (0-5); Hematocrit 45.2 % (40-54); Hemoglobin 14.5 g/dL (13.0-16.5); Lymphocyte # 2.58 X10^3/ul (0.83-4.51); Lymphocyte % 31.4 % (19-41); Mean Corp Hgb Conc 32.1 g/dL (32-36); Mean Corpuscular Hgb 28.3 pg (27.0-32.0); Mean Corpuscular Volume 88.1 fL (80-94); Mean Platelet Vol. 9.1 fl (6.2-12.0); Monocyte# 0.74 X10^3/uL; NRBC Flagged by Analyzer 0 % (0-5); Neutrophil # 4.56 X10^3/uL (2.7-7.7); Neutrophil % 55.5 % (47-70); Platelet Count 281 K/mm3 (150-450); RBC Distribution Width CV 13.4 % (11.6-14.6); RBC Distribution Width SD 43.5 fl (35.1-43.9); Red Blood Count 5.13 M/mm3 (4.6-6.2); White Blood Count 8.2 K/mm3 (4.4-11.0)
[2024-11-21 15:08] LABS: PROEL- A/G Ratio 1.2 (0.7-1.7); PROEL- Albumin 3.8 g/dL (2.9-4.4); PROEL- Alpha-1 Globulin 0.3 g/dL (0.0-0.4); PROEL- Alpha-2 Globulin 0.8 g/dL (0.4-1.0); PROEL- Beta Globulin 1.1 g/dL (0.7-1.3); PROEL- Globulin, Total 3.2 g/dL (2.2-3.9); PROEL-M-Spike Not Observed g/dL (Not Observed); PROELU- Albumin, Urine 33.3 % (.); PROELU- Alpha-2-Globulin,Ur 18.7 % (.); PROELU- Beta Globulin, Ur 32.1 % (.); PROELU- Gamma Globulin, Ur 14.9 % (.); Total Protein, Ur 18.3 mg/dL (Not Estab.)
== END | disposition home or self-care (01) ==
LOC: POLAB3 09:39
PROVIDERS: PCP Family Medicine Geriatric Medicine; Visit Provider Family Medicine Geriatric Medicine
DX: Z01.89 Encounter for other specified special examinations (principal); R53.83 Other fatigue; E87.1 Hypo-osmolality and hyponatremia
CPT/HCPCS: 36415; 84165; 84166; 85025

== ENCOUNTER → 2024-11-21 | Outpatient (CLI) | payer MEDICAID, SELFPAY | END | disposition home or self-care (01) | LOC: PSN 08:56 | PROVIDERS: PCP Family Medicine Geriatric Medicine; Referring Provider Family Medicine Geriatric Medicine; Visit Provider Family Medicine Geriatric Medicine | DX: Z01.89 Encounter for other specified special examinations (principal); F90.9 Attention-deficit hyperactivity disorder, unspecified type | CPT/HCPCS: 93005 ==

== ENCOUNTER → 2025-05-31 | Outpatient (CLI) | payer MEDICAID, SELFPAY ==
[2025-05-31 10:05] LABS: Hematocrit 46.6 % (40-54); Hemoglobin 15.6 g/dL (13.0-16.5); Immature Granulocytes Count 0.050 X10^3/uL (0.0-0.0); Mean Corp Hgb Conc 33.5 g/dL (32-36); Mean Corpuscular Volume 86.0 fL (80-94); Mean Platelet Vol. 9.4 fl (6.2-12.0); NRBC Flagged by Analyzer 0 % (0-5); Platelet Count 338 K/mm3 (150-450); RBC Distribution Width CV 13.8 % (11.6-14.6); RBC Distribution Width SD 43.6 fl (35.1-43.9); Red Blood Count 5.42 M/mm3 (4.6-6.2); White Blood Count 13.2 K/mm3 (4.4-11.0)
[2025-05-31 10:50] LABS: Cholesterol 213 mg/dL (<=200); Low Density Lipoprotein Calc. 131 mg/dL; Triglycerides 168 mg/dL; Very Low Density Lipoprotein 34 mg/dL (5-40); cholesterol:hdl ratio screen 4.39
[2025-05-31 11:12] LABS: AST(SGOT) 21 U/L (<=37); Alanine Aminotransfer ALT/SGPT 15 U/L (<=46); Albumin, Serum 4.7 g/dL (3.5-5.0); Alkaline Phosphatase 79 U/L (40-129); Anion Gap 12 (5-15); BUN 12 mg/dL (4-19); BUN/Creat Ratio 12.8 RATIO (10-20); Calcium,Total 10.0 mg/dL (7.6-11.0); Carbon Dioxide 26.4 mmol/L (21.0-32.0); Chloride 101 mmol/L (98-108); Globulin 3.4 g/dL (2.2-4.2); Glucose 150 mg/dL (70-99); Potassium 4.1 mmol/L (3.3-5.1)
[2025-05-31 17:47] LABS: Xtra Tube Kwok EXTRA TUBE
== END | disposition home or self-care (01) ==
LOC: POLAB3 09:46
PROVIDERS: PCP Family Medicine Geriatric Medicine; Visit Provider Family Medicine Geriatric Medicine
DX: I10 Essential (primary) hypertension (principal); E78.5 Hyperlipidemia, unspecified; E03.9 Hypothyroidism, unspecified
CPT/HCPCS: 36415; 80053; 80061; 84443; 85025

== ENCOUNTER 2025-07-01 14:52 | Emergency (ER) | payer MEDICAID, SELFPAY ==
[2025-07-01 14:54] VITALS: BP 143/102; PULSE 71; RESP 18; TEMP 36; O2SAT 99
[2025-07-01 15:35] VITALS: BP 155/103; PULSE 71; RESP 14; TEMP 36; O2SAT 95
== END 2025-07-01 15:50 | disposition left against medical advice (07) ==
LOC: ED 16:04
PROVIDERS: PCP Family Medicine Geriatric Medicine
DX: Z53.21 Procedure and treatment not carried out due to patient leaving prior to being seen by health care provider (principal)
CPT/HCPCS: 99282